=== PATIENT | female | born 1965 | race Caucasian/White ===

== ENCOUNTER → 2018-01-28 08:53 | Outpatient (CLI) | payer BC, SELFPAY ==
--- NOTE | 2018-01-28 08:56 | MM_ITS ---
MM Dig screening mamm BI w/CAD CAD Screening ORDERING PHYSICIAN : Allen Licea MD PATIENT AGE: 52 years GENDER: Female COMPARISON: Previous bilateral mammograms: December 2015, August 2013 INDICATION: Routine screening. 52-year-old. No hormones. No new complaints. Previous lung benign lumpectomy left breast. Previous biopsies both breasts. TECHNIQUE: Standard CC and MLO images were obtained. R2 CAD reviewed. FINDINGS: Dense breast bilaterally decreased sensitivity of mammography. . LEFT BREAST:The dense breast pattern seen towards the upper outer quadrant left breast is similar to 2016. No.. Minimal areas of nodularity seen previously are again noted. Small cluster of small calcifications deep left breast again noted and has shown no significant progression since 2016. Thus tend to support his benign nature. However previous magnification views raise concern. Because some this as well as slightly more evident density/nodularity left breast would suggest a follow-up left mammogram 6 months.. Ultrasound at that return visit would be beneficial as well. .RIGHT BREAST:. Metallic marker from Previous stereotactic biopsy at 12:00 right breast. Areas of dense breast similar to previous and dissipate from one view to another with no persistent area of concern. Follow-up in one year adequate However and breasts of this diffuse increased density low threshold for ultrasound would be warranted to compliment, augment mammography particularly if any palpable areas encountered IMPRESSION: 1. The tiny cluster of microcalcifications deep lateral left breast does not appear to change significantly since 2016. This supports is benign in character but would suggest a follow-up left mammogram in 6-8 months to further evaluate . 2. The breast is quite dense somewhat nodular character bilaterally which has not changed significantly and can be followed.. However Would suggest including bilateral breast ultrasound with the patient returns in 6-8 months to further evaluate this underlying architecture in this dense slightly nodular breast bilateral.No previous bilateral ultrasounds available BI-RADS Category: 3 Benign Finding Short Term Follow-up RECOMMENDED FOLLOW-UP: 6M -8 MONTH FOLLOW-UP Magnification spot views of clustered microcalcification deep left lateral breast 6 months Also suggest include bilateral breast ultrasound at that 6 month visit to survey these fairly dense slightly nodular breast... ( No previous bilateral breast ultrasound available) (A letter has been sent to the patient regarding results of the study.) breast bilaterally
== END ==
PROVIDERS: Family Provider Family Medicine; PCP Family Medicine; Visit Provider Nurse Practitioner Obstetrics & Gynecology
DX: Z12.31 Encounter for screening mammogram for malignant neoplasm of breast (principal)
CPT/HCPCS: 77067

== ENCOUNTER → 2018-02-22 09:48 | Outpatient (POV) | payer BC, SELFPAY | PROVIDERS: Family Provider Family Medicine; PCP Family Medicine; Visit Provider Specialist | DX: G56.03 Carpal tunnel syndrome, bilateral upper limbs (principal) | CPT/HCPCS: 95886; 95909 ==

== ENCOUNTER 2018-07-08 10:57 | Outpatient (RCR) | payer OTHER, SELFPAY | END 2018-07-08 10:58 | disposition home or self-care (01) | LOC: OT 10:57 | PROVIDERS: Family Provider Family Medicine; PCP Family Medicine; Visit Provider Orthopaedic Surgery | DX: G56.01 Carpal tunnel syndrome, right upper limb (principal) | CPT/HCPCS: 97760 ==

== ENCOUNTER → 2018-07-27 13:50 | Outpatient (POV) | payer OTHER, SELFPAY | PROVIDERS: Family Provider Family Medicine; PCP Family Medicine; Visit Provider Dermatology | DX: Z00.00 Encounter for general adult medical examination without abnormal findings (principal) ==

== ENCOUNTER → 2018-08-11 09:44 | Outpatient (CLI) | payer OTHER, SELFPAY ==
[2018-08-11 10:12] LABS: Basophils % 0.1 % (0.1-2.0); Eosinophils # 0.2 K/mm3 (0.0-0.4); Eosinophils % 2.3 % (0.1-12.0); Hematocrit 43.2 % (37.0-47.0); Hemoglobin 14.1 g/dL (12.2-16.2); Lymphocytes # 2.1 K/mm3 (0.7-4.5); Lymphocytes % 31.4 K/mm3 (10-50); Mean Corpuscular HGB Conc 32.7 g/dL (31.8-35.4); Mean Corpuscular Hemoglobin 28.4 pg (27.0-31.2); Mean Corpuscular Volume 86.6 fl (81-99); Mean Platelet Volume 6.8 fl (7.4-10.4); Monocytes # 0.4 K/mm3 (0.1-1.0); Monocytes % 5.4 % (1.7-9.3); Neutrophils % 60.7 % (37.0-80.0); Platelet Count 230 K/mm3 (142-424); Red Blood Count 4.98 M/mm3 (4.20-5.40); Red Cell Distribution Width 13.8 % (11.5-17.5); White Blood Count 6.6 K/mm3 (4.8-10.8)
[2018-08-11 11:14] LABS: Alanine Aminotransferase 24 U/L (12-78); Albumin Level 3.6 gm/dL (3.4-5.0); Albumin/Globulin Ratio 1.2 (1.1-1.8); Alkaline Phosphatase 137 U/L (46-116); Anion Gap 9.5 mEq/L (5-15); Aspartate Amino Transferase 17 U/L (15-37); Bilirubin,Total 0.5 mg/dL (0.2-1.0); Blood Urea Nitrogen 8 mg/dL (7-18); Calcium 9.2 mg/dL (8.5-10.1); Carbon Dioxide 29 mmol/L (21.0-32.0); Chloride 107 mmol/L (98-107); Chol/HDL Ratio 5.8 (1-3.5); Cholesterol 263 mg/dL (140-200); Creatinine,Serum 0.78 mg/dL (0.55-1.02); Estimated Glomerular Filt Rate 78 ml/min (>60); GFR (African American) 94 ML/MIN (>60); Globulin 3.1 gm/dl (1.3-3.2); Glucose 92 mg/dL (74-106); HDL Cholesterol 45 mg/dL (29-89); LDL Cholesterol 170 mg/dL (0-130); Potassium 4.5 mmoL/L (3.5-5.1); Sodium 141 mmol/L (136-145); Total Protein,Serum 6.7 gm/dL (6.4-8.2); Triglycerides 241 mg/dL (30-200); VLDL Cholesterol 48 mg/dL (0-40)
== END ==
PROVIDERS: PCP Family Medicine; Visit Provider Nurse Practitioner Obstetrics & Gynecology
DX: Z00.00 Encounter for general adult medical examination without abnormal findings (principal)
CPT/HCPCS: 36415; 80053; 80061; 85025

== ENCOUNTER → 2018-09-02 11:46 | Outpatient (CLI) | payer OTHER, SELFPAY ==
--- NOTE | 2018-09-02 12:00 | XR_ITS ---
XR chest 2V HISTORY: ITS.REASON: SMOKER ORDERING PHYSICIAN: Anupam Angel MD PATIENT AGE: 53 years COMPARISON: 09/12/2016 FINDINGS: The cardiomediastinal silhouette and pulmonary vascularity are within normal limits. The lungs are clear without infiltrates, suspicious nodules, or pleural effusions. No acute bony abnormalities. IMPRESSION: Negative chest, no acute finding
--- NOTE | 2018-09-02 12:00 | XR_ITS ---
XR wrist LT min 3V HISTORY numbness in fingers swelling and pain ITS.REASON: CTS ORDERING PHYSICIAN: Anupam Angel MD PATIENT AGE: 53 years Comparison: None FINDINGS: No fracture or dislocation. No lytic or blastic change. Accessory center of ossification versus old fracture noted at the tip of the ulnar styloid. No significant degenerative change. IMPRESSION: No acute finding
[2018-09-02 12:46] LABS: Basophils % 0.1 % (0.1-2.0); Eosinophils # 0.1 K/mm3 (0.0-0.4); Eosinophils % 1.6 % (0.1-12.0); Hematocrit 45.2 % (37.0-47.0); Hemoglobin 14.6 g/dL (12.2-16.2); Lymphocytes # 3.2 K/mm3 (0.7-4.5); Lymphocytes % 37.3 % (10-50); Mean Corpuscular HGB Conc 32.3 g/dL (31.8-35.4); Mean Corpuscular Hemoglobin 28.1 pg (27.0-31.2); Mean Corpuscular Volume 87.2 fl (81-99); Mean Platelet Volume 6.7 fl (7.4-10.4); Monocytes # 0.4 K/mm3 (0.1-1.0); Monocytes % 4.8 % (1.7-9.3); Neutrophils # 4.8 K/mm3 (1.8-7.8); Neutrophils % 56.1 % (37.0-80.0); Platelet Count 269 K/mm3 (142-424); Red Blood Count 5.18 M/mm3 (4.20-5.40); Red Cell Distribution Width 13.8 % (11.5-17.5); White Blood Count 8.5 K/mm3 (4.8-10.8)
[2018-09-02 13:56] LABS: Anion Gap 14.5 mEq/L (5-15); Blood Urea Nitrogen 10 mg/dL (7-18); Calcium 9.6 mg/dL (8.5-10.1); Carbon Dioxide 29 mmol/L (21.0-32.0); Chloride 102 mmol/L (98-107); Estimated Glomerular Filt Rate 66 ml/min (>60); GFR (African American) 80 ML/MIN (>60); Glucose 92 mg/dL (74-106); Potassium 4.5 mmoL/L (3.5-5.1); Sodium 141 mmol/L (136-145)
== END ==
PROVIDERS: PCP Family Medicine; Visit Provider Orthopaedic Surgery
DX: Z01.818 Encounter for other preprocedural examination (principal); G56.02 Carpal tunnel syndrome, left upper limb
CPT/HCPCS: 36415; 71046; 73110; 80048; 85025; 93005

== ENCOUNTER → 2018-10-29 13:26 | Outpatient (CLI) | payer OTHER, SELFPAY ==
--- NOTE | 2018-10-29 13:30 | US_ITS ---
US transvaginal HISTORY: Right lower quadrant pain ITS.REASON: RLQ PAIN ORDERING PHYSICIAN: Huy Shin MD PATIENT AGE: 53 years Comparison: FINDINGS: There has been a prior hysterectomy. Vaginal cuff has an unremarkable appearance. The right ovary is enlarged at 6 x 4 x 4 cm containing a septated cyst measuring 4.3 x 1.9 cm. This could be due to difference cyst. Blood flow is present within the septation or between the cysts. The left ovary is unremarkable. No cul-de-sac fluid evident. IMPRESSION: Septated right ovarian cyst measuring 4.6 x 1.9 cm versus 2 adjacent cysts in the right ovary each measuring approximately 2 cm. Consider 4-6 week follow-up to confirm resolution or stability. Prior hysterectomy
--- NOTE | 2018-10-29 13:30 | XR_ITS ---
XR wrist RT min 3V HISTORY: Right wrist pain ITS.REASON: right wrist pain/ cts ORDERING PHYSICIAN: Huy Shin MD PATIENT AGE: 53 years COMPARISON: Left wrist 09/02/2018 FINDINGS: No fracture or dislocation. No lytic or blastic change. There is normal mineralization.. The joint spaces are well-preserved. No significant degenerative/arthritic changes. No erosive changes evident.. There is a tiny bone density adjacent to the ulnar styloid possibly an accessory ossification center versus an old unfused chip fracture. It is smaller than the similar finding of the left wrist . The soft tissues are normal. IMPRESSION: Negative right wrist
== END ==
PROVIDERS: PCP Family Medicine; Visit Provider Family Medicine
DX: G56.01 Carpal tunnel syndrome, right upper limb (principal); R10.31 Right lower quadrant pain
CPT/HCPCS: 73110; 76830

== ENCOUNTER → 2018-11-08 12:55 | Outpatient (CLI) | payer OTHER, SELFPAY ==
[2018-11-08 14:55] LABS: Alanine Aminotransferase 23 U/L (12-78); Albumin Level 3.5 gm/dL (3.4-5.0); Albumin/Globulin Ratio 1.2 (1.1-1.8); Alkaline Phosphatase 138 U/L (46-116); Anion Gap 11.6 mEq/L (5-15); Aspartate Amino Transferase 11 U/L (15-37); Bilirubin,Total 0.6 mg/dL (0.2-1.0); Blood Urea Nitrogen 11 mg/dL (7-18); Calcium 9.1 mg/dL (8.5-10.1); Carbon Dioxide 29 mmol/L (21.0-32.0); Chloride 105 mmol/L (98-107); Chol/HDL Ratio 3.9 (1-3.5); Cholesterol 219 mg/dL (140-200); Creatinine,Serum 0.92 mg/dL (0.55-1.02); Estimated Glomerular Filt Rate 64 ml/min (>60); GFR (African American) 78 ML/MIN (>60); Glucose 94 mg/dL (74-106); HDL Cholesterol 56 mg/dL (29-89); LDL Cholesterol 130 mg/dL (0-130); Potassium 4.6 mmoL/L (3.5-5.1); Sodium 141 mmol/L (136-145); Thyroid Stimulating Hormone 2.18 uIU/ml (0.358-3.740); Total Protein,Serum 6.5 gm/dL (6.4-8.2); Triglycerides 163 mg/dL (30-200); VLDL Cholesterol 33 mg/dL (0-40)
== END ==
PROVIDERS: PCP Family Medicine; Visit Provider Family Medicine
DX: E78.5 Hyperlipidemia, unspecified (principal); E03.9 Hypothyroidism, unspecified
CPT/HCPCS: 36415; 80053; 80061; 84443

== ENCOUNTER 2019-03-27 11:59 | Emergency (ER) | payer OTHER, SELFPAY ==
[2019-03-27 12:10] VITALS: BP 140/92; PULSE 94; RESP 18; TEMP 36.6; O2SAT 97; BMI 32.9
--- NOTE | 2019-03-27 12:14 | XR_ITS ---
XR chest 2V HISTORY: Shortness of air ITS.REASON: SOA ORDERING PHYSICIAN: Glory Cueto APRN PATIENT AGE: 53 years COMPARISON: 09/02/2018 FINDINGS: The cardiomediastinal silhouette and pulmonary vascularity are within normal limits. There is a 1.7 cm nodular opacity in the right perihilar region. There is a small left pleural effusion with mild atelectatic changes in the lung bases. No acute bony anomalies IMPRESSION: 1. 1.7 cm nodule in the right perihilar region. While this can be due to an area of rounded pneumonia, developing pulmonary nodule is also a consideration. Chest CT with contrast suggested for further evaluation. 2. Small left pleural effusion with mild bibasilar atelectasis
--- NOTE | 2019-03-27 12:14 | HMH.EDUTC ---
[facility] – [place] Disposition Clinical Impression: Bronchitis Disposition: Home, Self-Care Condition on Discharge: Good Instructions: DI for Acute Bronchitis, Acute Bronchitis, Acute Bronchitis (Alternative Therapy) Additional Instructions: ? Start antibiotic today. Be sure to complete entire prescription even if feeling better ? Monitor temp. Tylenol every 4 hours as needed and / or ibuprofen every 6 hours as needed ( As long as your primary care physician has told you that it ok to take both. For fever/aches/pains ER if no less than 101 despite Tylenol or Motrin ? Humidifier/vaporizer or hot steamy shower ? Inhaler every 4-6 hours as needed like we discussed. If unsure how to use it, ask pharmacist to demonstrate how. Should help open airways and improve cough, wheezing, and shortness of breath ? Mucinex during the day for your cough and cough suppressant only at night. Be sure to drink lots of water. Insurance may not cover a prescriptions for mucinex. Might be cheaper to get 400mg tablets and take 2 tablet in the morning, mid-day and evening with lots of water. Tessalon Perles will not cause drowsiness but use at bedtime to help stop cough so that you may get some rest. *Start steroid today. Helps with inflammation therefore, cough and wheezing. Follow directions on the package. Reviewed side effects. Patient reports taking them before. Follow up IMMEDIATELY for new or worsening of symptoms OR no noticeable improvement over the next 48-72 hours. 911 immediately for any life threatening symptoms such as chest pain or difficulty breathing Prescriptions: Albuterol Sulfate [Albuterol HFA Inhaler] 2 puffs IH Q6HP PRN #1 inh PRN Reason: Shortness Of Breath Or Wheezing predniSONE [Prednisone 20mg Tab] 20 mg PO BID #10 tab Benzonatate [Tessalon Perle 100mg Cap] 100 mg PO TID PRN #15 cap PRN Reason: Cough Azithromycin [Z-Jose 250mg Tab] 250 mg PO UD DOSE PK #6 tab Referrals: Johnnie Quinones MD [Primary Care Provider] - As needed Time of Disposition: 12:47 Medical Decision Making - Sammy Inquiry Pt receiving controlled substance: No Sammy was queried for this patient: No Vital Signs: 03/27/19 12:10 Temperature 97.9 F Temperature Source Oral Pulse Rate [Right Brachial] 94 H Respiratory Rate 18 Blood Pressure [Right Arm] 140/92 H Blood Pressure Mean [Right Arm] 108 Blood Pressure Source [Right Arm] Automatic Cuff Blood Pressure Position [Right Arm] Sitting 02 Sat by Pulse Oximetry 97 Oxygen Delivery Method Room Air Orders (Tests/Meds): ORDERS Category Date Time Status CXR 2 view (NOT portable) [XR chest 2V] Stat Exams 03/27/19 12:14 Taken - Radiology Data #1 Image(s): Chest Image Reviewed: Yes I reviewed the patient's radiology image No acute finding, will place on azithromycin steroids and have patient follow up with family doctor if any worsening of symptoms or no improvement - Reevaluation(s) Time: 12:28 Reevaluation #1: Requested ER physician Dr Amanda look at xray awaiting call back Time: 12:51 Reevaluation #3: Patient state that she is not having soa at this time. sitting on exam table talking with [facility] [place] HPI - General Stated complaint: SOA Time Seen by Provider: 03/27/19 12:14 Mode of Arrival: Family Vehicle Source of Information: Patient Limitations: No Limitations Description of Symptoms (Recalled from Triage Doc. by RN): C/O TROUBLE BREATHING X 3 DAYS WITH NO COUGH HEENT Symptoms (Recalled from RN notes): No Resp Symptoms (Recalled from RN notes): Yes Skin Symptoms (Recalled from RN notes): No MS Symptoms (Recalled from RN notes): No Functional Status (Recalled from RN notes): N/A - History of Present Illness Provider Complaint: Patient states that she has had a dry cough, feeling of pressure in both ears State that for the last two night she has been waking up in the middle of the night feeling a little short of breath and then it goes away State that symptoms starte
--- NOTE | 2019-03-27 12:17 | ED_ITS ---
[facility] [place] Clinical Impression: Bronchitis Disposition: Home, Self-Care Condition on Discharge: Good Instructions: DI for Acute Bronchitis, Acute Bronchitis, Acute Bronchitis (Alternative Therapy) Additional Instructions: ? Start antibiotic today. Be sure to complete entire prescription even if feeling better ? Monitor temp. Tylenol every 4 hours as needed and / or ibuprofen every 6 hours as needed ( As long as your primary care physician has told you that it ok to take both. For fever/aches/pains ER if no less than 101 despite Tylenol or Motrin ? Humidifier/vaporizer or hot steamy shower ? Inhaler every 4-6 hours as needed like we discussed. If unsure how to use it, ask pharmacist to demonstrate how. Should help open airways and improve cough, wheezing, and shortness of breath ? Mucinex during the day for your cough and cough suppressant only at night. Be sure to drink lots of water. Insurance may not cover a prescriptions for mucinex. Might be cheaper to get 400mg tablets and take 2 tablet in the morning, mid-day and evening with lots of water. Tessalon Perles will not cause drowsiness but use at bedtime to help stop cough so that you may get some rest. *Start steroid today. Helps with inflammation therefore, cough and wheezing. Follow directions on the package. Reviewed side effects. Patient reports taking them before. Follow up IMMEDIATELY for new or worsening of symptoms OR no noticeable improvement over the next 48-72 hours. 911 immediately for any life threatening symptoms such as chest pain or difficulty breathing Prescriptions: Albuterol Sulfate [Albuterol HFA Inhaler] 2 puffs IH Q6HP PRN #1 inh PRN Reason: Shortness Of Breath Or Wheezing predniSONE [Prednisone 20mg Tab] 20 mg PO BID #10 tab Benzonatate [Tessalon Perle 100mg Cap] 100 mg PO TID PRN #15 cap PRN Reason: Cough Azithromycin [Z-Jose 250mg Tab] 250 mg PO UD DOSE PK #6 tab Referrals: Johnnie Quinones MD [Primary Care Provider] - As needed Time of Disposition: 12:47 Medical Decision Making - Sammy Inquiry Pt receiving controlled substance: No Sammy was queried for this patient: No Vital Signs: 03/27/19 12:10 Temperature 97.9 F Temperature Source Oral Pulse Rate [Right Brachial] 94 H Respiratory Rate 18 Blood Pressure [Right Arm] 140/92 H Blood Pressure Mean [Right Arm] 108 Blood Pressure Source [Right Arm] Automatic Cuff Blood Pressure Position [Right Arm] Sitting 02 Sat by Pulse Oximetry 97 Oxygen Delivery Method Room Air Orders (Tests/Meds): ORDERS Category Date Time Status CXR 2 view (NOT portable) [XR chest 2V] Stat Exams 03/27/19 12:14 Taken - Radiology Data #1 Image(s): Chest Image Reviewed: Yes I reviewed the patient's radiology image No acute finding, will place on azithromycin steroids and have patient follow up with family doctor if any worsening of symptoms or no improvement - Reevaluation(s) Time: 12:28 Reevaluation #1: Requested ER physician Dr Amanda look at xray awaiting call back Time: 12:51 Reevaluation #3: Patient state that she is not having soa at this time. sitting on exam table talking with [facility] [place] - General Stated complaint: SOA Time Seen by Provider: 03/27/19 12:14 Mode of Arrival: Family Vehicle Source of Information: Patient Limitations: No Limitations Description of Symptoms (Rec
[2019-03-27 12:52] VITALS: BP 140/92; PULSE 94; RESP 18; TEMP 36.6; O2SAT 97
== END 2019-03-27 12:54 | disposition home or self-care (01) ==
PROVIDERS: Emergency Provider Nurse Practitioner; PCP Family Medicine
DX: J20.9 Acute bronchitis, unspecified (principal); F17.210 Nicotine dependence, cigarettes, uncomplicated; F32.9 Major depressive disorder, single episode, unspecified; Z88.5 Allergy status to narcotic agent
CPT/HCPCS: 71046; 99201

== ENCOUNTER → 2019-04-11 08:31 | Outpatient (CLI) | payer OTHER, SELFPAY ==
--- NOTE | 2019-04-11 08:38 | CT_ITS ---
CT chest w con HISTORY: ITS.REASON: PULMONARY NODULES, abnormal chest x-ray, ORDERING PHYSICIAN: Johnnie Quinones MD PATIENT AGE: 53 years COMPARISON: 03/27/2019 TECHNIQUE: Axial images obtained following the administration of 75 mL of Optiray 350 . Sagittal, and coronal reformatted images are also generated and reviewed. All CT scans at the facility use one or more dose reduction, viz: automated exposure control, ma/kV adjustment per patient size (including targeted exams where dose is matched to indication, i.e. head), or iterative reconstruction technique. FINDINGS: No mediastinal or hilar mass or adenopathy. No evidence of aortic aneurysm, dissection, or central pulmonary embolus. There is a well-circumscribed 10 by 6 mm round nodule in the right upper lobe posteriorly and medially along the major fissure. No effusions or infiltrates. There are minimal atelectatic or fibrotic changes in the left lung base. The remaining lungs are clear. No acute bony anomalies. Upper abdominal images are unremarkable. IMPRESSION: 1. 10 x 6 mm noncalcified pulmonary nodule in the right upper lobe medially along the major fissure. This nodule is located along the fissure and has benign features. Suggest 6 month follow-up due to the size. 2. Previously noted radiographic abnormality in the right perihilar region is not apparent and may been due to an area of infiltrate which has since resolved. Left basilar infiltrate and effusion has also resolved.
== END ==
PROVIDERS: PCP Family Medicine; Visit Provider Family Medicine
DX: R91.1 Solitary pulmonary nodule (principal)
CPT/HCPCS: 71260; Q9967

== ENCOUNTER → 2019-07-06 10:32 | Outpatient (CLI) | payer OTHER, SELFPAY ==
--- NOTE | 2019-07-06 10:59 | ECG_ITS ---
APPROVED REPORT Exam: Resting ECG HR:87 bpm ECG Measurements Heart Rate 87 AXES AR 176 P 48 QRSd 90 QRS 0 QT 404 T 24 QTc 486 <Conclusion> Normal sinus rhythm Possible Left atrial enlargement Prolonged QT Incomplete RBBB Abnormal ECG Electronically signed by : Tyson Burton, 07/06/2019 13:08:32
--- NOTE | 2019-07-06 11:01 | XR_ITS ---
PROCEDURE: XR CHEST 2V CLINICAL HISTORY: SOB, CP Shortness of breath, chest pain COMPARISON: CXR CHEST(2 VIEWS-NOT PORTABLE) from 09/12/2016 CXR2V XR chest 2V from 09/02/2018 Chest from 03/27/2019 FINDINGS: The cardiomediastinal silhouette and pulmonary vascularity are within normal limits. Fibrotic changes are present in the lung bases. The previously noted increased density in the right perihilar region has shown some improvement. There does remain some consolidation in the right perihilar region as before. Trace bilateral effusions are noted. No acute bony abnormalities. IMPRESSION: Persistent but improving right lower lobe pneumonia. Previously noted rounded area of density in the right perihilar region is less apparent. Suggest following till clear. Trace bilateral effusions unchanged Dictated by: Zi Quintana MD 07/06/2019 12:34 Electronically signed by Zi Quintana MD in [place] 07/06/2019 12:34
[2019-07-06 11:30] LABS: CKMB Relative Index 1.5 U/L (0-4.0); Creatine Kinase 52 U/L (26-192); Creatine Kinase MB 0.8 ng/ml (0.0-3.6); Troponin I < 0.02 ng/ml (0.00-0.06)
[2019-07-06 13:10] LABS: Alanine Aminotransferase 19 U/L (12-78); Albumin Level 3.5 gm/dL (3.4-5.0); Albumin/Globulin Ratio 1.4 (1.1-1.8); Alkaline Phosphatase 116 U/L (46-116); Anion Gap 13.1 mEq/L (5-15); Aspartate Amino Transferase 15 U/L (15-37); Bilirubin,Total 0.8 mg/dL (0.2-1.0); Blood Urea Nitrogen 9 mg/dL (7-18); Calcium 8.7 mg/dL (8.5-10.1); Carbon Dioxide 27 mmol/L (21.0-32.0); Chloride 108 mmol/L (98-107); Creatinine,Serum 0.89 mg/dL (0.55-1.02); Estimated Glomerular Filt Rate 67 ml/min (>60); GFR (African American) 81 ML/MIN (>60); Globulin 2.5 gm/dl (1.3-3.2); Glucose 108 mg/dL (74-106); Potassium 4.1 mmoL/L (3.5-5.1); Sodium 144 mmol/L (136-145); Thyroid Stimulating Hormone 1.03 uIU/ml (0.358-3.740)
[2019-07-06 14:28] LABS: D-Dimer 511 ng/mL (0-400)
--- NOTE | 2019-07-06 15:45 | CT_ITS ---
PROCEDURE: CT ANGIO CHEST CLINCIAL INDICATION: CHEST PAIN,SOB,ELEVATD D-DIMER Shortness of breath, difficulty breathing, elevated D-dimer COMPARISON: XR CHEST 2V from 07/06/2019 TECHNIQUE: IV Contrast: 70ML OPTIRAY 350 Axial images obtained with sagittal and coronal reformats. All CT scans at the facility use one or more dose reduction, viz: automated exposure control, ma/kV adjustment per patient size (including targeted exams where dose is matched to indication, i.e. head), or iterative reconstruction technique. FINDINGS: No evidence of pulmonary embolus. No aortic aneurysm or dissection evident. No evidence of pericardial effusion. There is increased soft tissue density in the anterior mediastinum. There is an enlarged left AP window lymph node at 2.7 x 1.9 cm. Mild adenopathy is present in the subcarinal region. This measures 3 x 1.4 cm. No pericardial effusion. Normal heart size. No axillary adenopathy. There are only a few small bilateral axillary lymph nodes present nonenlarged. There is some calcification in the right breast laterally nonspecific There are scattered atelectatic changes. There is a 7 mm noncalcified nodule right upper lobe medially which is along the major fissure. This is 10 mm in length. There are some patchy peripheral areas of ground-glass density noted throughout both lungs as well as prominence of the interstitium in the lower lobes. This could be seen with CHF. Atelectatic changes are present in the lung bases with small bilateral effusions. No acute bony anomalies. There is mild splenomegaly at 13 cm. IMPRESSION: 1. No evidence of pulmonary embolus or aortic aneurysm. 2. Mild mediastinal adenopathy with enlarged nodes in the AP window and subcarinal area. There is some increased density in the anterior mediastinum which could be related to residual thymic tissue or small nodes. Suggest 3 month follow-up to confirm short term stability 3. Small bilateral effusions with bibasilar atelectasis. There is septal thickening in the lower lobes with patchy ground-glass density in both lungs which may be seen with CHF. Dictated by: Zi Quintana MD 07/06/2019 16:40 Electronically signed by Zi Quintana MD in [place] 07/06/2019 16:40
== END ==
PROVIDERS: PCP Family Medicine; Visit Provider Physician Assistant
DX: R06.02 Shortness of breath (principal); R07.9 Chest pain, unspecified; R07.89 Other chest pain; E03.9 Hypothyroidism, unspecified
CPT/HCPCS: 36415; 71046; 71275; 80053; 82550; 82553; 83880; 84443; 84484; 85378; 93005; Q9967

== ENCOUNTER → 2019-07-13 09:55 | Outpatient (CLI) | payer OTHER, SELFPAY ==
--- NOTE | 2019-07-13 | CA_ITS ---
APPROVED REPORT EXAM: Comprehensive 2D, Doppler, and color-flow Echocardiogram Professor Of Astronomy: Rupali Guillaume RVT Ht: 5 ft 2 in Wt: 181lbs BSA: 1.83 BP: 133/85 mmHg Indications: Congestive Heart Failure, Obesity, Hyperlipidemia,Smoker 2D Dimensions LVOT 1.90 cm (M/F) 1.5-2.5 M-Mode Dimensions RVDd 1.70 cm (0.9-2.6) LA Diam 4.00 cm (1.9-4.0) LVDd 5.20 cm (3.5-5.7) Ao Diam 2.40 cm (2.0-3.7) LVDs 3.30 cm (3.5-5.7) AV Cusp 1.70 cm (1.5-2.6) IVSd 0.70 cm (0.6-1.1) PWd 1.00 cm (0.6-1.1) EF (Teich) 66.10% FS 36.50% EDV (Teich) 130.00 mL ESV (Teich) 44.10 mL LV Diastology E/A Ratio 1.1 MED E' 6.63 (< 7 cm/sec) E'/MED E' Ratio 12.70 (>14) LAT E' 15.20 (<10 cm/sec) E/LAT E' Ratio 5.50 (>14) Aortic Valve AoV Peak Hawk. 81.90 (50-130 cm/s) AO Peak GR. 3.00 mmHg Mitral Valve MV E Max Hawk. 83.90 (40-130 cm/s) MV A Velocity 78.00 (40-130 cm/s) E/A Ratio 1.10 MV Mean Gr. 8.00 (<2mmHg) MV PHT 82.00 ms MVA PHT 2.7 cm2 Pulmonary Valve PA Accel Time 141.00 (>120 msec) Tricuspid Valve TR P. Velocity 267.00 cm/s Left Ventricle Left atrium is moderately enlarged, left ventricle is normal size, mild concentric left ventricular hypertrophy, visually estimated ejection fraction 55% with no regional wall motion abnormality. Diastolic parameters are inconclusive. Right Ventricle Right atrium and right ventricular normal size and contractility. Aortic Valve Aortic valve is minimally thickened and fibrosed, leaflet continue to display good mobility, there is no aortic stenosis. Mitral Valve Mitral valve leaflets are minimally thickened, there is restriction in the posterior mitral leaflet mobility, the posterior mitral valve leaflet is redundant. The mitral inflow velocity is increased to 2 m/s, resulting in a mean gradient across valve of 7 mmHg, the pressure half-time is not accurately calculated, there is mitral regurgitation present which is likely in severe range. If clinically indicated transesophageal echocardiogram is recommended for further evaluation. Tricuspid Valve Mild tricuspid regurgitation, tricuspid regurgitation jet velocity is inadequate for calculation of the right ventricular systolic pressure. Pulmonic Valve Pulmonic valve is poorly visualized. Great Vessels Aortic root is normal size. Pericardium No significant pericardial effusion noted. Conclusion 1. Technically difficult study because of the patient fact in poor acoustic windows 2. Moderately enlarged left atrium, normal left ventricular size, mild concentric left ventricular hypertrophy, visually estimated ejection fraction 55% with no regional wall motion abnormality, diastolic parameters are inconclusive. 3. Abnormal mitral valve with mean gradient across valve of 7 mmHg, pressure half-time is not accurately calculated, there is mitral regurgitation present which is likely in severe range, if clinically indicated a transesophageal echocardiogram is recommended for further evaluation. 4. Mild tricuspid regurgitation. 5. No significant pericardial effusion noted. Electronically signed by : Vern Valera, 07/15/2019 16:12:47
--- NOTE | 2019-07-13 | CA_ITS ---
APPROVED REPORT Outreach Librarian: CT Laterality: Bilateral Study Quality: Good Indications: Paresthesia Risk Factors Hyperlipidemia Doppler Spectral Velocity Analysis ECA (R) 76.70/ cm/s ECA (L) 75.40/ cm/s dICA (R) 97.40/38.30 cm/s dICA (L) 98.10/46.50 cm/s Alex (R) 105.00/45.90 cm/s Alex (L) 92.40/43.40 cm/s pICA (R) 77.90/34.60 cm/s pICA (L) 69.10/30.80 cm/s dCCA (R) 77.80/30.60 cm/s dCCA (L) 82.30/33.90 cm/s pCCA (R) 91.10/32.20 cm/s pCCA (L) 84.20/27.70 cm/s Vert (R) 50.30/ cm/s Vert (L) 54.70/ cm/s ICA/CCA 1.35 ICA/CCA 1.19 Conclusion Duplex evaluation demonstrates no evidence of hemodynamically significant stenosis of the bilateral Internal Carotid Arteries. Duplex evaluation demonstrates antegrade flow of the bilateral Vertebral Arteries. Electronically signed by : iZ Quintana MD 07/14/2019 16:35:46
== END ==
PROVIDERS: PCP Physician Assistant; Visit Provider Physician Assistant
DX: I50.9 Heart failure, unspecified (principal); R20.2 Paresthesia of skin
CPT/HCPCS: 93306; 93880

== ENCOUNTER → 2019-07-14 12:30 | Outpatient (CLI) | payer OTHER, SELFPAY ==
--- NOTE | 2019-07-14 12:44 | XR_ITS ---
PROCEDURE: XR WRIST RT MIN 3V CLINICAL INDICATION: CARPEL TUNNEL SYNDROME Carpal tunnel syndrome, burning, numbness COMPARISON: WRISTCMLT XR wrist LT min 3V from 09/02/2018 WRISTCMRT XR wrist RT min 3V from 10/29/2018 FINDINGS: No fracture or dislocation. No lytic or blastic change. There is a small calcific density at the tip of the ulnar styloid similar to the previous exam. There are mild osteoarthritic changes at the 1st metacarpal-carpal joint. A faint lucency is present at the articular surface of the distal aspect of the scaphoid and may represent a small subarticular cyst. IMPRESSION: Mild degenerative changes otherwise negative Dictated by: Zi Quintana MD 07/14/2019 12:55 Electronically signed by Zi Quintana MD in [place] 07/14/2019 12:55
[2019-07-14 13:18] LABS: Basophils % 0.2 % (0.1-2.0); Eosinophils # 0.2 K/mm3 (0.0-0.4); Eosinophils % 1.9 % (0.1-12.0); Hematocrit 42.4 % (37.0-47.0); Hemoglobin 13.4 g/dL (12.2-16.2); Lymphocytes # 3.2 K/mm3 (0.7-4.5); Lymphocytes % 35.7 % (10-50); Mean Corpuscular HGB Conc 31.6 g/dL (31.8-35.4); Mean Corpuscular Hemoglobin 27.2 pg (27.0-31.2); Mean Corpuscular Volume 86.3 fl (81-99); Mean Platelet Volume 6.5 fl (7.4-10.4); Monocytes # 0.4 K/mm3 (0.1-1.0); Monocytes % 4.3 % (1.7-9.3); Neutrophils # 5.1 K/mm3 (1.8-7.8); Platelet Count 283 K/mm3 (142-424); Red Blood Count 4.92 M/mm3 (4.20-5.40); Red Cell Distribution Width 13.4 % (11.5-17.5); White Blood Count 8.9 K/mm3 (4.8-10.8)
== END ==
PROVIDERS: Visit Provider Orthopaedic Surgery
DX: Z01.818 Encounter for other preprocedural examination (principal); G56.01 Carpal tunnel syndrome, right upper limb
CPT/HCPCS: 36415; 73110; 85025

== ENCOUNTER → 2019-10-11 09:41 | Outpatient (CLI) | payer OTHER, SELFPAY ==
[2019-10-11 10:35] VITALS: PULSE 78; PULSE 82
== END ==
PROVIDERS: PCP Family Medicine; Visit Provider Physician Assistant
DX: R06.02 Shortness of breath (principal)
CPT/HCPCS: 94060; 94640; 94726; 94729

== ENCOUNTER → 2019-10-17 14:33 | Outpatient (CLI) | payer OTHER, SELFPAY ==
--- NOTE | 2019-10-17 14:36 | CT_ITS ---
PROCEDURE: CT CHEST W CON CLINICAL HISTORY: PULMONARY NODULES, COMPARISON: CHESTW CT chest w con from 04/11/2019 CT ANGIO CHEST from 07/06/2019 TECHNIQUE: Axial images obtained with sagittal and coronal reformats. All CT scans at the facility use one or more dose reduction, viz: automated exposure control, ma/kV adjustment per patient size (including targeted exams where dose is matched to indication, i.e. head), or iterative reconstruction technique. FINDINGS: Airway structures are patent without pleural effusion or pneumothorax. There is a thin linear strand of increased density in the lingula and posterior left lower lobe and base of the right middle lobe. The 10.0 millimeter noncalcified subpleural nodule adjacent to the superior right major fissure in the posterior segment right upper lobe is stable. There are no new nodules. Mediastinal structures and thoracic aorta are unremarkable. There is no abnormal adenopathy. Some hazy strands of increased density in the anterior superior mediastinum remains stable. Visualized upper abdominal structures are unremarkable with finding of prior cholecystectomy. IMPRESSION: No significant change. Specifically right upper lobe 10 millimeter noncalcified nodule is stable. Suggest follow-up CT chest at 6-12 months. No acute process or significant change. Dictated by: Antonino Bullock 10/17/2019 16:43 Electronically signed by Antonino Bullock in [facility] 10/17/2019 16:43
== END ==
PROVIDERS: PCP Family Medicine; Visit Provider Physician Assistant
DX: R91.8 Other nonspecific abnormal finding of lung field (principal); R59.0 Localized enlarged lymph nodes
CPT/HCPCS: 71260; Q9967

== ENCOUNTER → 2019-11-22 12:20 | Outpatient (CLI) | payer OTHER, SELFPAY ==
--- NOTE | 2019-11-22 12:25 | XR_ITS ---
PROCEDURE: XR ANKLE LT MIN 3V CLINICAL INDICATION: LT ANKLE PAIN COMPARISON: No exams were available for comparison FINDINGS: There is an old fracture versus ununited ossification center at the medial malleolar region with mild hypertrophic changes at the tip of the medial malleolus and lateral malleolus. There is mild spurring of the posterior distal tibia. The ankle mortise is well preserved. No acute fracture or dislocation. Unremarkable appearing talar dome IMPRESSION: Degenerative/chronic changes, no acute finding Dictated by: Zi Quintana MD 11/22/2019 14:43 Electronically signed by Zi Quintana MD in [facility] 11/22/2019 14:43
== END ==
PROVIDERS: PCP Family Medicine; Visit Provider Family Medicine
DX: M25.572 Pain in left ankle and joints of left foot (principal)
CPT/HCPCS: 73610

== ENCOUNTER → 2019-12-09 13:54 | Outpatient (CLI) | payer OTHER, SELFPAY ==
--- NOTE | 2019-12-09 13:57 | CT_ITS ---
PROCEDURE: CT CHEST WO CON CLINICAL INDICATION: LUNG NODULE Follow-up pulmonary nodule COMPARISON: CHESTW CT chest w con from 04/11/2019 CT CHEST W CON from 10/17/2019 TECHNIQUE: Axial images obtained with sagittal and coronal reformats. All CT scans at the facility use one or more dose reduction, viz: automated exposure control, ma/kV adjustment per patient size (including targeted exams where dose is matched to indication, i.e. head), or iterative reconstruction technique. FINDINGS: HEART AND MEDIASTINAL STRUCTURES: Hazy density in the anterior mediastinum not significantly changed. No mediastinal or hilar mass or adenopathy. LUNGS AND PLEURAL SPACES: 6 mm right upper lobe nodule adjacent to the major fissure is unchanged. No new nodules evident. The no effusions or infiltrates. BONY STRUCTURES: No acute bony abnormalities apparent. UPPER ABDOMEN: Unremarkable. ADDITIONAL FINDINGS: No other significant abnormalities. IMPRESSION: Overall stable CT appearance of the chest. No change in the 6 mm right upper lobe nodule. Recommend 12 month follow-up Dictated by: Zi Quintana MD 12/11/2019 07:14 Electronically signed by Zi Quintana MD in [facility] 12/11/2019 07:16
== END ==
PROVIDERS: PCP Family Medicine; Visit Provider Internal Medicine Sleep Medicine
DX: R91.1 Solitary pulmonary nodule (principal); R09.82 Postnasal drip
CPT/HCPCS: 71250

== ENCOUNTER → 2020-02-28 08:36 | Outpatient (CLI) | payer OTHER, SELFPAY ==
--- NOTE | 2020-02-28 08:36 | MR_ITS ---
PROCEDURE: MR FOOT RT WO/W CON CLINICAL INDICATION: rule out plantar fascia tear. Right foot pain, history of plantar fasciitis COMPARISON: No exams were available for comparison TECHNIQUE: Routine multiplanar multi echo sequences are performed without and with gadolinium enhancement. FINDINGS: No fracture or dislocation apparent. No obvious ligamentous or tendinous abnormalities. There is a small ankle joint effusion with fluid along the lateral aspect of the talonavicular and tibiotalar region as well as the posterior subtalar joint and posterior talocalcaneal area. There is thickening of the plantar fascia at its insertion on the calcaneus with decreased T1 and increased T2 signal. There is local increased T2 signal of the soft tissues at this region as well the along the medial aspect of the calcaneus consistent with underlying inflammatory changes/edema. IMPRESSION: 1. Findings are compatible with plantar fasciitis with increased T2 signal and thickening of the plantar fascia at the calcaneal insertion with surrounding inflammation of the soft tissues medially. One cannot exclude the possibility of a partial tear of the plantar fascia. 2. Ankle joint effusion Dictated by: Zi Quintana MD 03/01/2020 11:47 Electronically signed by Zi Quintana MD in [facility] 03/01/2020 11:47
== END ==
PROVIDERS: PCP Family Medicine; Visit Provider Nurse Practitioner
DX: M72.2 Plantar fascial fibromatosis (principal)
CPT/HCPCS: 73720; A9576

== ENCOUNTER → 2020-03-03 08:38 | Outpatient (CLI) | payer OTHER, SELFPAY ==
[2020-03-03 10:06] LABS: Chloride 104 mmol/L (98-107); Potassium 4.3 mmoL/L (3.5-5.1); Sodium 138 mmol/L (136-145)
[2020-03-03 10:08] LABS: Blood Urea Nitrogen 14 mg/dl (7-17); Estimated Glomerular Filt Rate 58 ml/min (>60); GFR (African American) 70 ML/MIN (>60)
[2020-03-03 10:09] LABS: Alanine Aminotransferase 9 U/L (12-78); Albumin Level 4.1 g/dl (3.5-5.0); Albumin/Globulin Ratio 1.7 (1.1-1.8); Alkaline Phosphatase 109 U/L (38-126); Anion Gap 7.3 mEq/L (5-15); Aspartate Amino Transferase 14 U/L (14-36); Calcium 9.9 mg/dl (8.4-10.2); Carbon Dioxide 31 mmol/L (22.0-30.0); Cholesterol 150 mg/dl (140-200); Globulin 2.4 g/dL (1.3-3.2); Glucose 98 mg/dl (74-100); Total Protein,Serum 6.5 g/dl (6.3-8.2); Triglycerides 141 mg/dl (30-150); VLDL Cholesterol 28 mg/dL (0-40)
[2020-03-03 10:10] LABS: Chol/HDL Ratio 2.2 (1-3.5); HDL Cholesterol 69 mg/dl (40-60); Hemoglobin A1C 5.6 % (4.0-6.0)
[2020-03-03 10:18] LABS: NT Pro Brain Natriuretic Pep. 87.9 pg/mL (0-125)
[2020-03-03 10:21] LABS: Direct LDL Cholesterol 71.45 mg/dL (100-129)
[2020-03-03 10:24] LABS: Free T4 (Free Thyroxine) 1.02 ng/dl (0.78-2.19)
[2020-03-03 10:39] LABS: Thyroid Stimulating Hormone 3.37 uIU/mL (0.465-4.68)
== END ==
PROVIDERS: Visit Provider Physician Assistant
DX: R06.02 Shortness of breath (principal); R73.01 Impaired fasting glucose; E03.9 Hypothyroidism, unspecified; E78.5 Hyperlipidemia, unspecified
CPT/HCPCS: 36415; 80053; 80061; 83036; 83880; 84439; 84443

== ENCOUNTER → 2020-07-03 13:48 | Outpatient (CLI) | payer OTHER, SELFPAY ==
[2020-07-03 16:00] LABS: INR 5.06 (0.9-1.1); Prothrombin Time 46.9 seconds (9.4-11.8)
== END ==
PROVIDERS: Visit Provider Internal Medicine Cardiovascular Disease
DX: Z51.81 Encounter for therapeutic drug level monitoring (principal); Z79.01 Long term (current) use of anticoagulants; Z95.2 Presence of prosthetic heart valve
CPT/HCPCS: 36415; 85610

== ENCOUNTER → 2020-07-06 09:30 | Outpatient (CLI) | payer OTHER, SELFPAY ==
[2020-07-06 10:03] LABS: INR 1.54 (0.9-1.1); Prothrombin Time 15.4 seconds (9.4-11.8)
== END ==
PROVIDERS: Visit Provider Internal Medicine Cardiovascular Disease
DX: Z51.81 Encounter for therapeutic drug level monitoring (principal); Z79.01 Long term (current) use of anticoagulants
CPT/HCPCS: 36415; 85610

== ENCOUNTER → 2020-07-09 09:06 | Outpatient (CLI) | payer OTHER, SELFPAY ==
[2020-07-09 16:54] LABS: INR 1.93 (0.9-1.1); Prothrombin Time 19.2 seconds (9.4-11.8)
== END ==
PROVIDERS: Visit Provider Internal Medicine Cardiovascular Disease
DX: Z95.2 Presence of prosthetic heart valve (principal)
CPT/HCPCS: 36415; 85610

== ENCOUNTER → 2020-07-12 08:52 | Outpatient (CLI) | payer OTHER, SELFPAY ==
[2020-07-12 09:24] LABS: INR 1.69 (0.9-1.1); Prothrombin Time 16.8 seconds (9.4-11.8)
== END ==
PROVIDERS: Visit Provider Internal Medicine Cardiovascular Disease
DX: Z51.81 Encounter for therapeutic drug level monitoring (principal); Z79.01 Long term (current) use of anticoagulants; Z95.2 Presence of prosthetic heart valve
CPT/HCPCS: 36415; 85610

== ENCOUNTER → 2020-07-17 09:49 | Outpatient (CLI) | payer OTHER, SELFPAY ==
[2020-07-17 10:29] LABS: INR 1.86 (0.9-1.1); Prothrombin Time 18.4 seconds (9.4-11.8)
== END ==
PROVIDERS: Visit Provider Internal Medicine Cardiovascular Disease
DX: Z51.81 Encounter for therapeutic drug level monitoring (principal); Z79.01 Long term (current) use of anticoagulants; Z95.2 Presence of prosthetic heart valve
CPT/HCPCS: 36415; 85610

== ENCOUNTER 2020-08-15 09:59 | Outpatient (RCR) | payer OTHER, SELFPAY | END 2020-10-16 14:41 | disposition home or self-care (01) | LOC: PT 09:59 | PROVIDERS: Visit Provider Thoracic Surgery (Cardiothoracic Vascular Surgery) | DX: Z95.2 Presence of prosthetic heart valve (principal); I25.10 Atherosclerotic heart disease of native coronary artery without angina pectoris | CPT/HCPCS: 93798 ==

== ENCOUNTER → 2020-08-16 12:39 | Outpatient (CLI) | payer OTHER, SELFPAY ==
[2020-08-16 14:19] LABS: INR 3.22 (0.9-1.1); Prothrombin Time 32.1 seconds (9.4-11.8)
== END ==
PROVIDERS: Visit Provider Internal Medicine Cardiovascular Disease
DX: Z51.81 Encounter for therapeutic drug level monitoring (principal); Z79.01 Long term (current) use of anticoagulants; Z95.2 Presence of prosthetic heart valve
CPT/HCPCS: 36415; 85610

== ENCOUNTER → 2020-08-28 10:38 | Outpatient (CLI) | payer OTHER, SELFPAY ==
[2020-08-28 11:52] LABS: Prothrombin Time 26.5 seconds (9.4-11.8)
== END ==
PROVIDERS: Visit Provider Internal Medicine Cardiovascular Disease
DX: Z51.81 Encounter for therapeutic drug level monitoring (principal); Z79.01 Long term (current) use of anticoagulants; Z95.2 Presence of prosthetic heart valve
CPT/HCPCS: 36415; 85610

== ENCOUNTER → 2020-09-03 11:19 | Outpatient (CLI) | payer OTHER, SELFPAY ==
[2020-09-03 13:02] LABS: INR 2.43 (0.9-1.1); Prothrombin Time 24.9 seconds (9.4-11.8)
== END ==
PROVIDERS: PCP Family Medicine; Visit Provider Internal Medicine Cardiovascular Disease
DX: Z51.81 Encounter for therapeutic drug level monitoring (principal); Z79.01 Long term (current) use of anticoagulants; Z95.2 Presence of prosthetic heart valve
CPT/HCPCS: 36415; 85610

== ENCOUNTER → 2020-09-10 13:25 | Outpatient (CLI) | payer OTHER, SELFPAY ==
[2020-09-10 14:52] LABS: INR 2.28 (0.9-1.1); Prothrombin Time 22.2 seconds (9.4-11.8)
== END ==
PROVIDERS: Visit Provider Internal Medicine Cardiovascular Disease
DX: Z51.81 Encounter for therapeutic drug level monitoring (principal); Z79.01 Long term (current) use of anticoagulants; Z95.2 Presence of prosthetic heart valve
CPT/HCPCS: 36415; 85610

== ENCOUNTER → 2020-09-13 10:49 | Outpatient (CLI) | payer OTHER, SELFPAY ==
[2020-09-13 15:46] LABS: INR 2.79 (0.9-1.1); Prothrombin Time 28.2 seconds (9.4-11.8)
== END ==
PROVIDERS: Visit Provider Internal Medicine Cardiovascular Disease
DX: Z51.81 Encounter for therapeutic drug level monitoring (principal); Z79.01 Long term (current) use of anticoagulants; Z95.2 Presence of prosthetic heart valve
CPT/HCPCS: 36415; 85610

== ENCOUNTER → 2020-09-16 12:27 | Outpatient (CLI) | payer OTHER, SELFPAY ==
--- NOTE | 2020-09-16 12:39 | XR_ITS ---
PROCEDURE: XR CHEST PORTABLE Referring Doctor: Jose Antonio Sanders Patient Age:55Y CLINICAL HISTORY: COVID 19 TESTING Exposed to covid. Questionable covid Asymptomatic at this time COMPARISON: No exams were available for comparison FINDINGS: Today's AP upright chest is compared to previous chest studies from March and June 2019 There has been interval sternotomy with what appears to be valve replacement.. The heart is upper normal in size. Sarah and mediastinal structures stable. Unremarkable The lungs appear clear with nothing acute. There were some mild chronic changes at the right infrahilar region right lung base again noted but this area appears stable. If anything appears slightly clearer than previous exam. The remainder of right upper chest clear. Left lung clear unremarkable. There may be some mild hyperexpansion at the upper lung bhardwaj. Chest wall and ribs unremarkable on this AP study. IMPRESSION: No acute findings. Lungs clear with nothing acute. Mild chronic changes Interval sternotomy and apparent valve replacement Dictated by: Tim Tafoya MD 09/16/2020 15:55 Tim Tafoya MD in [facility] 09/16/2020 15:55
[2020-09-16 13:32] LABS: Basophils % 0.1 % (0.1-2.0); Eosinophils # 0.4 K/mm3 (0.0-0.4); Eosinophils % 5.5 % (0.1-12.0); Hematocrit 43.1 % (37.0-47.0); Hemoglobin 13.4 g/dL (12.2-16.2); Lymphocytes # 2.5 K/mm3 (0.7-4.5); Lymphocytes % 37.1 % (10-50); Mean Corpuscular HGB Conc 31.1 g/dL (31.8-35.4); Mean Corpuscular Hemoglobin 25.2 pg (27.0-31.2); Mean Platelet Volume 7.4 fl (7.4-10.4); Monocytes # 0.3 K/mm3 (0.1-1.0); Monocytes % 4.1 % (1.7-9.3); Neutrophils # 3.6 K/mm3 (1.8-7.8); Neutrophils % 53.2 % (37.0-80.0); Platelet Count 291 K/mm3 (142-424); Red Blood Count 5.31 M/mm3 (4.20-5.40); Red Cell Distribution Width 14.2 % (11.5-17.5); White Blood Count 6.7 K/mm3 (4.8-10.8)
[2020-09-17 10:11] LABS: Covid-19 Nasal PCR Sendout UK Not Detected
== END ==
PROVIDERS: PCP Family Medicine; Visit Provider Family Medicine
DX: Z03.818 Encounter for observation for suspected exposure to other biological agents ruled out (principal)
CPT/HCPCS: 36415; 71045; 85025; U0003

== ENCOUNTER → 2020-09-17 07:24 | Outpatient (CLI) | payer OTHER, SELFPAY ==
[2020-09-17 07:54] LABS: INR 3.02 (0.9-1.1); Prothrombin Time 30.3 seconds (9.4-11.8)
== END ==
PROVIDERS: Visit Provider Internal Medicine Cardiovascular Disease
DX: Z51.81 Encounter for therapeutic drug level monitoring (principal); Z79.01 Long term (current) use of anticoagulants; Z95.2 Presence of prosthetic heart valve
CPT/HCPCS: 36415; 85610

== ENCOUNTER → 2020-09-26 11:54 | Outpatient (CLI) | payer OTHER, SELFPAY ==
[2020-09-26 12:25] LABS: INR 2.51 (0.9-1.1); Prothrombin Time 25.6 seconds (9.4-11.8)
== END ==
PROVIDERS: Visit Provider Internal Medicine Cardiovascular Disease
DX: Z51.81 Encounter for therapeutic drug level monitoring (principal); Z79.01 Long term (current) use of anticoagulants; Z95.2 Presence of prosthetic heart valve
CPT/HCPCS: 36415; 85610

== ENCOUNTER → 2020-10-03 08:59 | Outpatient (CLI) | payer OTHER, SELFPAY ==
[2020-10-03 10:03] LABS: INR 2.79 (0.9-1.1); Prothrombin Time 28.2 seconds (9.4-11.8)
[2020-10-03 10:31] LABS: Chloride 106 mmol/L (98-107); Potassium 4.1 mmoL/L (3.5-5.1); Sodium 139 mmol/L (136-145)
[2020-10-03 10:33] LABS: Alanine Aminotransferase 15 U/L (12-78); Aspartate Amino Transferase 21 U/L (14-36); Blood Urea Nitrogen 8 mg/dl (7-17); Estimated Glomerular Filt Rate 65 ml/min (>60); GFR (African American) 79 ML/MIN (>60)
[2020-10-03 10:34] LABS: Albumin Level 4.1 g/dl (3.5-5.0); Albumin/Globulin Ratio 1.6 (1.1-1.8); Alkaline Phosphatase 139 U/L (38-126); Anion Gap 10.1 mEq/L (5-15); Bilirubin,Total 0.6 mg/dl (0.2-1.3); Calcium 9.7 mg/dl (8.4-10.2); Carbon Dioxide 27 mmol/L (22.0-30.0); Chol/HDL Ratio 2.8 (1-3.5); Cholesterol 201 mg/dl (140-200); Globulin 2.6 g/dL (1.3-3.2); Glucose 85 mg/dl (74-100); HDL Cholesterol 73 mg/dl (40-60); Total Protein,Serum 6.7 g/dl (6.3-8.2); Triglycerides 198 mg/dl (30-150); VLDL Cholesterol 40 mg/dL (0-40)
[2020-10-03 10:45] LABS: Direct LDL Cholesterol 84.84 mg/dL (100-129)
[2020-10-03 11:05] LABS: Thyroid Stimulating Hormone 2.38 uIU/mL (0.465-4.68)
== END ==
PROVIDERS: Internal Medicine Cardiovascular Disease; Visit Provider Nurse Practitioner Family
DX: I10 Essential (primary) hypertension (principal); E03.9 Hypothyroidism, unspecified; Z79.899 Other long term (current) drug therapy
CPT/HCPCS: 36415; 80053; 80061; 84443; 85610

== ENCOUNTER → 2020-10-10 10:39 | Outpatient (CLI) | payer OTHER, SELFPAY ==
[2020-10-10 15:21] LABS: Prothrombin Time 55.3 seconds (9.4-11.8)
[2020-10-10 15:22] LABS: INR 5.85 (0.9-1.1)
== END ==
PROVIDERS: Visit Provider Internal Medicine Cardiovascular Disease
DX: Z51.81 Encounter for therapeutic drug level monitoring (principal); Z79.01 Long term (current) use of anticoagulants; Z95.2 Presence of prosthetic heart valve
CPT/HCPCS: 36415; 85610

== ENCOUNTER → 2020-10-12 10:58 | Outpatient (CLI) | payer OTHER, SELFPAY ==
[2020-10-12 11:35] LABS: INR 2.78 (0.9-1.1); Prothrombin Time 28.1 seconds (9.4-11.8)
== END ==
PROVIDERS: Visit Provider Internal Medicine Cardiovascular Disease
DX: Z51.81 Encounter for therapeutic drug level monitoring (principal); Z79.01 Long term (current) use of anticoagulants; Z95.2 Presence of prosthetic heart valve
CPT/HCPCS: 36415; 85610

== ENCOUNTER → 2020-10-17 09:56 | Outpatient (CLI) | payer OTHER, SELFPAY ==
[2020-10-17 11:06] LABS: INR 5.58 (0.9-1.1)
== END ==
PROVIDERS: Visit Provider Internal Medicine Cardiovascular Disease
DX: Z51.81 Encounter for therapeutic drug level monitoring (principal); Z79.01 Long term (current) use of anticoagulants; Z95.2 Presence of prosthetic heart valve
CPT/HCPCS: 36415; 85610

== ENCOUNTER → 2020-10-22 10:07 | Outpatient (CLI) | payer OTHER, SELFPAY ==
[2020-10-22 10:37] LABS: INR 3.15 (0.9-1.1); Prothrombin Time 31.5 seconds (9.4-11.8)
[2020-10-22 14:35] LABS: Microscopic, Urine URINE MICROSCOPIC (MICROSCOPIC)
[2020-10-22 14:59] LABS: Basophils % 0.3 % (0.1-2.0); Eosinophils # 0.1 K/mm3 (0.0-0.4); Eosinophils % 1.2 % (0.1-12.0); Hematocrit 41.4 % (37.0-47.0); Hemoglobin 13.7 g/dL (12.2-16.2); Lymphocytes % 30.9 % (10-50); Mean Corpuscular HGB Conc 33.1 g/dL (31.8-35.4); Mean Corpuscular Hemoglobin 25.9 pg (27.0-31.2); Mean Corpuscular Volume 78.4 fl (81-99); Mean Platelet Volume 6.8 fl (7.4-10.4); Monocytes # 0.4 K/mm3 (0.1-1.0); Monocytes % 3.7 % (1.7-9.3); Neutrophils # 6.2 K/mm3 (1.8-7.8); Neutrophils % 63.9 % (37.0-80.0); Platelet Count 276 K/mm3 (142-424); Red Blood Count 5.29 M/mm3 (4.20-5.40); Red Cell Distribution Width 15.8 % (11.5-17.5); White Blood Count 9.7 K/mm3 (4.8-10.8)
[2020-10-22 15:13] LABS: Appearance,Urine CLEAR (Clear); Bilirubin,Urine Negative (Negative); Blood, Urine Negative (Negative); Color,Urine YELLOW (Yellow); Glucose,Urine (UA) Negative (Negative); Ketones,Urine Negative (Negative); Leukocyte Esterase,Urine Negative (Negative); Nitrate,Urine Negative (Negative); Protein,Urine Negative (Negative); Specific Gravity, Urine 1.015 (1.005-1.030); Urobilinogen,Urine 0.2 EU/dl (0.2)
[2020-10-22 15:48] LABS: Chloride 111 mmol/L (98-107); Potassium 3.8 mmoL/L (3.5-5.1); Sodium 141 mmol/L (136-145)
[2020-10-22 15:51] LABS: Alanine Aminotransferase 17 U/L (12-78); Albumin Level 3.9 g/dl (3.5-5.0); Albumin/Globulin Ratio 1.4 (1.1-1.8); Alkaline Phosphatase 127 U/L (38-126); Amylase 91 U/L (30-110); Anion Gap 8.8 mEq/L (5-15); Aspartate Amino Transferase 23 U/L (14-36); Bilirubin,Total 0.6 mg/dl (0.2-1.3); Blood Urea Nitrogen 8 mg/dl (7-17); Calcium 9.4 mg/dl (8.4-10.2); Carbon Dioxide 25 mmol/L (22.0-30.0); Estimated Glomerular Filt Rate 75 ml/min (>60); GFR (African American) 91 ML/MIN (>60); Globulin 2.7 g/dL (1.3-3.2); Glucose 116 mg/dl (74-100); Lipase 225 U/L (23-300); Total Protein,Serum 6.6 g/dl (6.3-8.2)
[2020-10-22 16:18] LABS: Bacteria,Urine Trace /lpf; WBC,Urine Occasional #/hpf (0-3)
== END ==
PROVIDERS: Internal Medicine Adolescent Medicine; Visit Provider Internal Medicine Cardiovascular Disease
DX: R10.31 Right lower quadrant pain (principal); R11.0 Nausea
CPT/HCPCS: 36415; 80053; 81001; 82150; 83690; 85025; 85610

== ENCOUNTER → 2020-10-24 08:49 | Outpatient (CLI) | payer OTHER, SELFPAY ==
--- NOTE | 2020-10-24 09:15 | CT_ITS ---
PROCEDURE: CT ABDOMEN PELVIS W CON CLINICAL INDICATION: RLQ PAIN,NAUSEA COMPARISON: No exams were available for comparison TECHNIQUE: IV Contrast: 75ML OPTIRAY 350 Oral Contrast 20ml Gastroview Axial images obtained with sagittal and coronal reformats. All CT scans at the facility use one or more dose reduction, viz: automated exposure control, ma/kV adjustment per patient size (including targeted exams where dose is matched to indication, i.e. head), or iterative reconstruction technique. FINDINGS: Lower thorax: The lower lung bhardwaj are clear and there is no pleural fluid. Cardiac size is normal. ABDOMEN: Liver: No masses or biliary dilatation. Gallbladder: Post cholecystectomy Pancreas: No masses or peripancreatic fluid collections. Spleen: unremarkable there are couple tiny calcifications noted. Adrenals: unremarkable Kidneys/ureters: Kidneys are normal in size and show symmetrical function, both kidneys appearing normal. ABDOMEN & PELVIS: Stomach bowel: The stomach and duodenal sweep appear normal. The small bowel appears grossly normal. There is scattered stool mixed with oral contrast in the ascending and transverse colon. The descending and sigmoid colon are somewhat decompressed. There is mild diffuse diverticulosis of the sigmoid colon without evidence of diverticulitis. The rectum appears normal. Peritoneum: No abnormal fluid collections. No obvious inflammatory changes. No free air. Lymph nodes: No enlarged lymph nodes apparent. Vasculature: No evidence of abdominal aortic aneurysm. No retroperitoneal hemorrhage evident. Bones: No acute fracture PELVIS: Reproductive: Post hysterectomy, there are mild bilateral tubal ligation clips. Bladder: Nondistended. No obvious stones or masses. There is no cul-de-sac fluid. Appendix: Unremarkable. No distention or periappendiceal phlegmonous change. IMPRESSION: No acute upper abdominal pathology, mild diffuse diverticulosis sigmoid colon without diverticulitis, no other significant abnormality noted Dictated by: Dr. Gurpreet Hopper MD 10/24/2020 11:56 Dr. Gurpreet Hopper MD in [facility] 10/24/2020 11:56
== END ==
PROVIDERS: PCP Family Medicine; Visit Provider Internal Medicine Adolescent Medicine
DX: R10.31 Right lower quadrant pain (principal); R11.0 Nausea
CPT/HCPCS: 74177; Q9967

== ENCOUNTER → 2020-10-29 11:42 | Outpatient (CLI) | payer OTHER, SELFPAY ==
[2020-10-29 12:25] LABS: INR 1.79 (0.9-1.1); Prothrombin Time 18.8 seconds (9.4-11.8)
== END ==
PROVIDERS: Visit Provider Internal Medicine Cardiovascular Disease
DX: Z51.81 Encounter for therapeutic drug level monitoring (principal); Z79.01 Long term (current) use of anticoagulants; Z95.2 Presence of prosthetic heart valve
CPT/HCPCS: 36415; 85610

== ENCOUNTER → 2020-11-01 08:59 | Outpatient (CLI) | payer OTHER, SELFPAY ==
[2020-11-01 10:10] LABS: Prothrombin Time 28.4 seconds (9.4-11.8)
[2020-11-01 10:11] LABS: INR 2.81 (0.9-1.1)
--- NOTE | 2020-11-01 11:35 | XR_ITS ---
PROCEDURE: XR CHEST 2V CLINICAL HISTORY: ABDOMINAL SWELLING, STATUS POST MARIA C VALVE PLACEMENT COMPARISON: CR Chest from 03/27/2019 DX XR CHEST 2V from 07/06/[address] CHEST WO CON from 12/09/2019 CR XR CHEST PORTABLE from 09/16/2020 FINDINGS: Prior median sternotomy with mitral valve replacement. Normal heart size. The lungs are clear without infiltrates, suspicious nodules, or pleural effusions. No acute bony abnormalities. IMPRESSION: No acute findings. Dictated by: Zi Quintana MD 11/01/2020 17:23 Zi Quintana MD in [facility] 11/01/2020 17:23
[2020-11-01 11:53] LABS: Basophils % 0.1 % (0.1-2.0); Eosinophils # 0.1 K/mm3 (0.0-0.4); Hematocrit 42.7 % (37.0-47.0); Hemoglobin 12.6 g/dL (12.2-16.2); Lymphocytes # 3.3 K/mm3 (0.7-4.5); Lymphocytes % 38.1 % (10-50); Mean Corpuscular HGB Conc 29.6 g/dL (31.8-35.4); Mean Corpuscular Hemoglobin 24.1 pg (27.0-31.2); Mean Corpuscular Volume 81.3 fl (81-99); Mean Platelet Volume 7.5 fl (7.4-10.4); Monocytes # 0.4 K/mm3 (0.1-1.0); Monocytes % 4.2 % (1.7-9.3); Neutrophils # 4.9 K/mm3 (1.8-7.8); Neutrophils % 56.5 % (37.0-80.0); Platelet Count 307 K/mm3 (142-424); Red Blood Count 5.25 M/mm3 (4.20-5.40); Red Cell Distribution Width 15.9 % (11.5-17.5); White Blood Count 8.7 K/mm3 (4.8-10.8)
[2020-11-01 11:57] LABS: Chloride 105 mmol/L (98-107); Sodium 140 mmol/L (136-145)
[2020-11-01 12:00] LABS: Alanine Aminotransferase 24 U/L (12-78); Albumin/Globulin Ratio 1.4 (1.1-1.8); Alkaline Phosphatase 137 U/L (38-126); Amylase 82 U/L (30-110); Aspartate Amino Transferase 29 U/L (14-36); Bilirubin,Total 0.6 mg/dl (0.2-1.3); Blood Urea Nitrogen 9 mg/dl (7-17); Calcium 9.7 mg/dl (8.4-10.2); Carbon Dioxide 30 mmol/L (22.0-30.0); Estimated Glomerular Filt Rate 65 ml/min (>60); GFR (African American) 79 ML/MIN (>60); Globulin 2.9 g/dL (1.3-3.2); Glucose 103 mg/dl (74-100); Lipase 156 U/L (23-300); Total Protein,Serum 6.9 g/dl (6.3-8.2)
== END ==
PROVIDERS: PCP Internal Medicine Adolescent Medicine; Visit Provider Internal Medicine Cardiovascular Disease
DX: R19.00 Intra-abdominal and pelvic swelling, mass and lump, unspecified site (principal); R79.1 Abnormal coagulation profile; Z95.2 Presence of prosthetic heart valve
CPT/HCPCS: 36415; 71046; 80053; 82150; 83690; 85025; 85610

== ENCOUNTER → 2020-11-02 14:40 | Outpatient (CLI) | payer OTHER, SELFPAY ==
--- NOTE | 2020-11-02 | CA_ITS ---
APPROVED REPORT EXAM: Comprehensive 2D, Doppler, and color-flow Echocardiogram [employer]: Faye Hearn CRT Ht: 5 ft 2 in Wt: 180lbs BSA: 1.83 BP: 108/70 mmHg Indications: Diabetes, Peripheral Edema, Hypertension/HDD, GERD, MVR 2D Dimensions LVOT 1.87 cm (M/F) 1.5-2.5 M-Mode Dimensions RVDd 1.68 cm (0.9-2.6) LA Diam 2.77 cm (1.9-4.0) LVDd 4.73 cm (3.5-5.7) Ao Diam 2.63 cm (2.0-3.7) LVDs 3.89 cm (3.5-5.7) IVSd 0.80 cm (0.6-1.1) PWd 0.84 cm (0.6-1.1) EF (Teich) 37.00% FS 17.80% EDV (Teich) 103.90 mL ESV (Teich) 65.50 mL LV Diastology E Decel Time 195.00 (160-240 msec) E/A Ratio 1.06 Aortic Valve AO Peak GR. 5.30 mmHg Mitral Valve MV E Max Hawk. 106.00 (40-130 cm/s) MV A Velocity 100.00 (40-130 cm/s) E/A Ratio 1.06 MV Decel. Time 195.00 (160-240 ms) MV Mean Gr. 2.20 (<2mmHg) MV PHT 57.00 ms Pulmonary Valve PV Peak Velocity 42.00 (50-150 cm/s) Tricuspid Valve TR P. Velocity 169.00 cm/s Left Ventricle Technically difficult study because of the patient factors and poor acoustic windows. Left atrium is mildly enlarged, left ventricle is normal size, mild concentric left ventricular hypertrophy, visually estimated ejection fraction approximately 45%, there is abnormal septal motion. There is no regional wall motion abnormality. Diastolic parameters are inconclusive. Right Ventricle Right atrium and right ventricle are normal size and contractility. Aortic Valve Aortic valve is thickened and calcified leaflet continue to display mobility, there is no aortic stenosis or aortic insufficiency. Mitral Valve There is mechanical prosthetic valve noted in the mitral position, the valve is well-seated, the mean gradient is in acceptable range, there is no significant mitral regurgitation. Tricuspid Valve Tricuspid valve grossly normal, there is mild tricuspid regurgitation, tricuspid regurgitation jet velocity is inadequate for calculation of the right ventricular systolic pressure. Pulmonic Valve Pulmonic valve is poorly visualized. Great Vessels Aortic root is normal size. Pericardium No significant pericardial effusion noted. Conclusion 1. Mildly enlarged left atrium, normal left ventricular size, mild concentric left ventricular hypertrophy, visually estimated ejection fraction 45% with no regional wall motion abnormality, there is abnormal septal motion, diastolic parameters are inconclusive. 2. Normal functioning mechanical prosthetic valve in the mitral position 3. No significant pericardial effusion noted. Electronically signed by : Vern Valera, 11/02/2020 21:02:31
== END ==
PROVIDERS: PCP Internal Medicine Adolescent Medicine; Visit Provider Internal Medicine Adolescent Medicine
DX: Z95.2 Presence of prosthetic heart valve (principal); I34.0 Nonrheumatic mitral (valve) insufficiency
CPT/HCPCS: 93306

== ENCOUNTER → 2020-11-06 09:51 | Outpatient (CLI) | payer OTHER, SELFPAY ==
[2020-11-06 10:23] LABS: INR 2.87 (0.9-1.1); Prothrombin Time 28.9 seconds (9.4-11.8)
== END ==
PROVIDERS: Visit Provider Internal Medicine Cardiovascular Disease
DX: Z51.81 Encounter for therapeutic drug level monitoring (principal); Z79.01 Long term (current) use of anticoagulants; Z95.2 Presence of prosthetic heart valve
CPT/HCPCS: 36415; 85610

== ENCOUNTER → 2020-11-13 09:38 | Outpatient (CLI) | payer OTHER, SELFPAY ==
[2020-11-13 11:13] LABS: INR 3.34 (0.9-1.1); Prothrombin Time 33.2 seconds (9.4-11.8)
== END ==
PROVIDERS: Visit Provider Internal Medicine Cardiovascular Disease
DX: Z51.81 Encounter for therapeutic drug level monitoring (principal); Z79.01 Long term (current) use of anticoagulants; Z95.2 Presence of prosthetic heart valve
CPT/HCPCS: 36415; 85610

== ENCOUNTER → 2020-11-20 10:26 | Outpatient (CLI) | payer OTHER, SELFPAY ==
[2020-11-20 12:24] LABS: INR 2.29 (0.9-1.1); Prothrombin Time 23.6 seconds (9.4-11.8)
== END ==
PROVIDERS: Visit Provider Internal Medicine Cardiovascular Disease
DX: Z51.81 Encounter for therapeutic drug level monitoring (principal); Z79.01 Long term (current) use of anticoagulants; Z95.2 Presence of prosthetic heart valve
CPT/HCPCS: 36415; 85610

== ENCOUNTER → 2020-11-26 10:44 | Outpatient (CLI) | payer OTHER, SELFPAY ==
[2020-11-26 11:27] LABS: INR 3.03 (0.9-1.1); Prothrombin Time 30.4 seconds (9.4-11.8)
== END ==
PROVIDERS: Visit Provider Internal Medicine Cardiovascular Disease
DX: Z51.81 Encounter for therapeutic drug level monitoring (principal); Z79.01 Long term (current) use of anticoagulants; Z95.2 Presence of prosthetic heart valve
CPT/HCPCS: 36415; 85610

== ENCOUNTER → 2020-12-03 12:36 | Outpatient (CLI) | payer OTHER, SELFPAY ==
[2020-12-03 13:29] LABS: Chloride 109 mmol/L (98-107); Sodium 140 mmol/L (136-145)
[2020-12-03 13:30] LABS: Potassium 4.2 mmoL/L (3.5-5.1)
[2020-12-03 13:32] LABS: Blood Urea Nitrogen 7 mg/dl (7-17); Estimated Glomerular Filt Rate 47 ml/min (>60); GFR (African American) 57 ML/MIN (>60)
[2020-12-03 13:33] LABS: Anion Gap 7.2 mEq/L (5-15); Calcium 9.7 mg/dl (8.4-10.2); Carbon Dioxide 28 mmol/L (22.0-30.0); Glucose 112 mg/dl (74-100)
== END ==
PROVIDERS: Visit Provider Internal Medicine Adolescent Medicine
DX: I50.22 Chronic systolic (congestive) heart failure (principal)
CPT/HCPCS: 36415; 80048

== ENCOUNTER → 2020-12-08 11:27 | Outpatient (CLI) | payer OTHER, SELFPAY ==
[2020-12-08 11:54] LABS: INR 3.76 (0.9-1.1)
== END ==
PROVIDERS: Visit Provider Internal Medicine Cardiovascular Disease
DX: Z51.81 Encounter for therapeutic drug level monitoring (principal); Z79.01 Long term (current) use of anticoagulants; Z95.2 Presence of prosthetic heart valve
CPT/HCPCS: 36415; 85610

== ENCOUNTER → 2020-12-18 11:42 | Outpatient (CLI) | payer OTHER, SELFPAY ==
[2020-12-18 13:09] LABS: INR 6.29 (0.9-1.1); Prothrombin Time 59.1 seconds (9.4-11.8)
== END ==
PROVIDERS: Visit Provider Internal Medicine Cardiovascular Disease
DX: Z51.81 Encounter for therapeutic drug level monitoring (principal); Z79.01 Long term (current) use of anticoagulants; Z95.2 Presence of prosthetic heart valve
CPT/HCPCS: 36415; 85610

== ENCOUNTER → 2020-12-21 08:21 | Outpatient (CLI) | payer OTHER, SELFPAY ==
[2020-12-21 09:24] LABS: INR 1.89 (0.9-1.1); Prothrombin Time 19.8 seconds (9.4-11.8)
== END ==
PROVIDERS: Visit Provider Internal Medicine Cardiovascular Disease
DX: Z51.81 Encounter for therapeutic drug level monitoring (principal); Z79.01 Long term (current) use of anticoagulants; Z95.2 Presence of prosthetic heart valve
CPT/HCPCS: 36415; 85610

== ENCOUNTER → 2020-12-24 10:29 | Outpatient (CLI) | payer OTHER, SELFPAY ==
[2020-12-24 11:01] LABS: INR 2.68 (0.9-1.1); Prothrombin Time 29.4 seconds (9.4-11.8)
== END ==
PROVIDERS: Visit Provider Internal Medicine Cardiovascular Disease
DX: Z51.81 Encounter for therapeutic drug level monitoring (principal); Z79.01 Long term (current) use of anticoagulants; Z95.2 Presence of prosthetic heart valve
CPT/HCPCS: 36415; 85610

== ENCOUNTER → 2020-12-28 09:36 | Outpatient (CLI) | payer OTHER, SELFPAY ==
[2020-12-28 10:17] LABS: INR 2.72 (0.9-1.1); Prothrombin Time 29.8 seconds (9.4-11.8)
== END ==
PROVIDERS: Visit Provider Internal Medicine Cardiovascular Disease
DX: Z51.81 Encounter for therapeutic drug level monitoring (principal); Z79.01 Long term (current) use of anticoagulants; Z95.2 Presence of prosthetic heart valve
CPT/HCPCS: 36415; 85610

== ENCOUNTER → 2021-01-02 09:04 | Outpatient (CLI) | payer OTHER, SELFPAY ==
[2021-01-02 09:31] LABS: INR 3.42 (0.9-1.1); Prothrombin Time 36.8 seconds (9.4-11.8)
== END ==
PROVIDERS: Visit Provider Internal Medicine Cardiovascular Disease
DX: Z51.81 Encounter for therapeutic drug level monitoring (principal); Z79.01 Long term (current) use of anticoagulants; Z95.2 Presence of prosthetic heart valve
CPT/HCPCS: 36415; 85610

== ENCOUNTER → 2021-01-08 08:40 | Outpatient (CLI) | payer OTHER, SELFPAY ==
[2021-01-08 09:50] LABS: Prothrombin Time 40.6 seconds (9.4-11.8)
== END ==
PROVIDERS: Visit Provider Internal Medicine Cardiovascular Disease
DX: Z51.81 Encounter for therapeutic drug level monitoring (principal); Z79.01 Long term (current) use of anticoagulants; Z95.2 Presence of prosthetic heart valve
CPT/HCPCS: 36415; 85610

== ENCOUNTER → 2021-01-15 11:00 | Outpatient (CLI) | payer OTHER, SELFPAY ==
[2021-01-15 11:36] LABS: Prothrombin Time 33.6 seconds (10.1-12.5)
== END ==
PROVIDERS: Visit Provider Internal Medicine Cardiovascular Disease
DX: Z51.81 Encounter for therapeutic drug level monitoring (principal); Z79.01 Long term (current) use of anticoagulants; Z95.2 Presence of prosthetic heart valve
CPT/HCPCS: 36415; 85610

== ENCOUNTER → 2021-01-22 09:16 | Outpatient (CLI) | payer OTHER, SELFPAY ==
[2021-01-22 09:48] LABS: INR 2.53 (0.9-1.1); Prothrombin Time 27.9 seconds (10.1-12.5)
== END ==
PROVIDERS: Visit Provider Internal Medicine Cardiovascular Disease
DX: Z51.81 Encounter for therapeutic drug level monitoring (principal); Z79.01 Long term (current) use of anticoagulants; Z95.2 Presence of prosthetic heart valve
CPT/HCPCS: 36415; 85610

== ENCOUNTER → 2021-01-29 10:38 | Outpatient (CLI) | payer OTHER, SELFPAY ==
[2021-01-29 11:09] LABS: INR 2.31 (0.9-1.1); Prothrombin Time 25.6 seconds (10.1-12.5)
== END ==
PROVIDERS: Visit Provider Internal Medicine Cardiovascular Disease
DX: Z95.2 Presence of prosthetic heart valve (principal)
CPT/HCPCS: 36415; 85610

== ENCOUNTER → 2021-02-05 09:27 | Outpatient (CLI) | payer OTHER, SELFPAY ==
[2021-02-05 10:00] LABS: INR 3.12 (0.9-1.1); Prothrombin Time 33.8 seconds (10.1-12.5)
== END ==
PROVIDERS: Visit Provider Internal Medicine Cardiovascular Disease
DX: Z51.81 Encounter for therapeutic drug level monitoring (principal); Z79.01 Long term (current) use of anticoagulants; Z95.2 Presence of prosthetic heart valve
CPT/HCPCS: 36415; 85610

== ENCOUNTER → 2021-02-12 08:57 | Outpatient (CLI) | payer OTHER, SELFPAY ==
[2021-02-12 09:39] LABS: INR 3.56 (0.9-1.1); Prothrombin Time 38.2 seconds (10.1-12.5)
== END ==
PROVIDERS: Visit Provider Internal Medicine Cardiovascular Disease
DX: Z51.81 Encounter for therapeutic drug level monitoring (principal); Z79.01 Long term (current) use of anticoagulants
CPT/HCPCS: 36415; 85610

== ENCOUNTER → 2021-02-19 09:21 | Outpatient (CLI) | payer OTHER, SELFPAY ==
[2021-02-19 09:53] LABS: Prothrombin Time 37.6 seconds (10.1-12.5)
== END ==
PROVIDERS: Visit Provider Internal Medicine Cardiovascular Disease
DX: Z51.81 Encounter for therapeutic drug level monitoring (principal); Z79.01 Long term (current) use of anticoagulants; Z95.2 Presence of prosthetic heart valve
CPT/HCPCS: 36415; 85610

== ENCOUNTER → 2021-03-05 10:13 | Outpatient (CLI) | payer OTHER, SELFPAY ==
[2021-03-05 10:54] LABS: INR 2.42 (0.9-1.1); Prothrombin Time 26.7 seconds (10.1-12.5)
== END ==
PROVIDERS: Visit Provider Internal Medicine Cardiovascular Disease
DX: Z51.81 Encounter for therapeutic drug level monitoring (principal); Z79.01 Long term (current) use of anticoagulants; Z95.2 Presence of prosthetic heart valve
CPT/HCPCS: 36415; 85610

== ENCOUNTER → 2021-03-19 10:16 | Outpatient (CLI) | payer OTHER, SELFPAY ==
[2021-03-19 11:11] LABS: Prothrombin Time 37.6 seconds (10.1-12.5)
== END ==
PROVIDERS: Visit Provider Internal Medicine Cardiovascular Disease
DX: Z51.81 Encounter for therapeutic drug level monitoring (principal); Z79.01 Long term (current) use of anticoagulants; Z95.2 Presence of prosthetic heart valve
CPT/HCPCS: 36415; 85610

== ENCOUNTER → 2021-04-02 10:17 | Outpatient (CLI) | payer OTHER, SELFPAY ==
[2021-04-02 10:48] LABS: INR 2.64 (0.9-1.1)
== END ==
PROVIDERS: Visit Provider Ophthalmology
DX: Z51.81 Encounter for therapeutic drug level monitoring (principal); Z79.01 Long term (current) use of anticoagulants; Z95.2 Presence of prosthetic heart valve
CPT/HCPCS: 36415; 85610

== ENCOUNTER → 2021-04-23 10:38 | Outpatient (CLI) | payer OTHER, SELFPAY ==
[2021-04-23 11:05] LABS: Prothrombin Time 20.9 seconds (10.1-12.5)
[2021-04-23 11:09] LABS: INR 1.85 (0.9-1.1)
== END ==
PROVIDERS: Visit Provider Internal Medicine Cardiovascular Disease
DX: Z51.81 Encounter for therapeutic drug level monitoring (principal); Z79.01 Long term (current) use of anticoagulants; Z95.2 Presence of prosthetic heart valve
CPT/HCPCS: 36415; 85610

== ENCOUNTER → 2021-04-26 10:31 | Outpatient (CLI) | payer OTHER, SELFPAY ==
[2021-04-26 11:04] LABS: Prothrombin Time 24.5 seconds (10.1-12.5)
== END ==
PROVIDERS: Visit Provider Internal Medicine Cardiovascular Disease
DX: Z51.81 Encounter for therapeutic drug level monitoring (principal); Z79.01 Long term (current) use of anticoagulants; Z95.2 Presence of prosthetic heart valve
CPT/HCPCS: 36415; 85610

== ENCOUNTER → 2021-05-03 10:07 | Outpatient (CLI) | payer OTHER, SELFPAY ==
[2021-05-03 10:31] LABS: Prothrombin Time 31.4 seconds (10.1-12.5)
[2021-05-03 10:33] LABS: INR 2.88 (0.9-1.1)
== END ==
PROVIDERS: Visit Provider Internal Medicine Cardiovascular Disease
DX: Z51.81 Encounter for therapeutic drug level monitoring (principal); Z79.01 Long term (current) use of anticoagulants; Z95.2 Presence of prosthetic heart valve
CPT/HCPCS: 36415; 85610

== ENCOUNTER → 2021-05-17 09:34 | Outpatient (CLI) | payer OTHER, SELFPAY ==
[2021-05-17 09:57] LABS: Prothrombin Time 25.4 seconds (10.1-12.5)
[2021-05-17 09:58] LABS: INR 2.29 (0.9-1.1)
== END ==
PROVIDERS: Visit Provider Nurse Practitioner Family
DX: Z51.81 Encounter for therapeutic drug level monitoring (principal); Z79.01 Long term (current) use of anticoagulants; Z95.2 Presence of prosthetic heart valve
CPT/HCPCS: 36415; 85610

== ENCOUNTER → 2021-05-24 13:03 | Outpatient (CLI) | payer OTHER, SELFPAY ==
[2021-05-24 13:28] LABS: Prothrombin Time 31.6 seconds (10.1-12.5)
== END ==
PROVIDERS: Visit Provider Internal Medicine Cardiovascular Disease
DX: Z51.81 Encounter for therapeutic drug level monitoring (principal); Z79.01 Long term (current) use of anticoagulants; Z95.2 Presence of prosthetic heart valve
CPT/HCPCS: 36415; 85610

== ENCOUNTER → 2021-05-31 08:28 | Outpatient (CLI) | payer OTHER, SELFPAY ==
[2021-05-31 08:52] LABS: Prothrombin Time 32.6 seconds (10.1-12.5)
== END ==
PROVIDERS: Visit Provider Internal Medicine Cardiovascular Disease
DX: Z51.81 Encounter for therapeutic drug level monitoring (principal); Z79.01 Long term (current) use of anticoagulants; Z95.2 Presence of prosthetic heart valve
CPT/HCPCS: 36415; 85610

== ENCOUNTER → 2021-06-13 11:40 | Outpatient (CLI) | payer OTHER, SELFPAY ==
[2021-06-13 12:26] LABS: Prothrombin Time 37.8 seconds (10.1-12.5)
[2021-06-13 12:30] LABS: INR 3.52 (0.9-1.1)
[2021-06-13 12:33] LABS: Basophils % 0.4 % (0.1-2.0); Eosinophils # 0.1 K/mm3 (0.0-0.4); Eosinophils % 1.5 % (0.1-12.0); Hematocrit 40.6 % (37.0-47.0); Hemoglobin 13.4 g/dL (12.2-16.2); Lymphocytes # 3.1 K/mm3 (0.7-4.5); Lymphocytes % 31.5 % (10-50); Mean Corpuscular HGB Conc 33.1 g/dL (31.8-35.4); Mean Corpuscular Hemoglobin 25.8 pg (27.0-31.2); Mean Corpuscular Volume 78.1 fl (81-99); Mean Platelet Volume 7.7 fl (7.4-10.4); Monocytes # 0.4 K/mm3 (0.1-1.0); Monocytes % 3.8 % (1.7-9.3); Neutrophils # 6.2 K/mm3 (1.8-7.8); Neutrophils % 62.7 % (37.0-80.0); Platelet Count 241 K/mm3 (142-424); Red Cell Distribution Width 16.8 % (11.5-17.5); White Blood Count 9.8 K/mm3 (4.8-10.8)
[2021-06-13 13:15] LABS: Alanine Aminotransferase 54 U/L (12-78); Albumin Level 3.8 g/dl (3.5-5.0); Albumin/Globulin Ratio 1.5 (1.1-1.8); Alkaline Phosphatase 128 U/L (38-126); Anion Gap 10.2 mEq/L (5-15); Aspartate Amino Transferase 46 U/L (14-36); Bilirubin,Total 0.5 mg/dl (0.2-1.3); Blood Urea Nitrogen 9 mg/dl (7-17); Carbon Dioxide 27 mmol/L (22.0-30.0); Chloride 108 mmol/L (98-107); Estimated Glomerular Filt Rate 75 ml/min (>60); GFR (African American) 91 ML/MIN (>60); Globulin 2.6 g/dL (1.3-3.2); Glucose 104 mg/dl (74-100); Potassium 4.2 mmoL/L (3.5-5.1); Sodium 141 mmol/L (136-145); Total Protein,Serum 6.4 g/dl (6.3-8.2)
[2021-06-13 13:45] LABS: Thyroid Stimulating Hormone 2.31 uIU/mL (0.465-4.68)
== END ==
PROVIDERS: Nurse Practitioner Family; Visit Provider Internal Medicine Cardiovascular Disease
DX: R42 Dizziness and giddiness (principal); E03.9 Hypothyroidism, unspecified; H65.06 Acute serous otitis media, recurrent, bilateral; Z51.81 Encounter for therapeutic drug level monitoring; Z79.01 Long term (current) use of anticoagulants; Z95.2 Presence of prosthetic heart valve
CPT/HCPCS: 36415; 80053; 84443; 85025; 85610

== ENCOUNTER → 2021-07-05 10:51 | Outpatient (CLI) | payer OTHER, SELFPAY ==
[2021-07-05 11:36] LABS: Prothrombin Time 21.6 seconds (10.1-12.5)
[2021-07-05 11:37] LABS: INR 1.92 (0.9-1.1)
== END ==
PROVIDERS: Visit Provider Internal Medicine Cardiovascular Disease
DX: Z51.81 Encounter for therapeutic drug level monitoring (principal); Z79.01 Long term (current) use of anticoagulants; Z95.2 Presence of prosthetic heart valve
CPT/HCPCS: 36415; 85610

== ENCOUNTER → 2021-07-12 11:22 | Outpatient (CLI) | payer OTHER, SELFPAY ==
[2021-07-12 11:59] LABS: Prothrombin Time 25.7 seconds (10.1-12.5)
[2021-07-12 12:00] LABS: INR 2.32 (0.9-1.1)
== END ==
PROVIDERS: Internal Medicine Cardiovascular Disease; Visit Provider Internal Medicine Cardiovascular Disease
DX: Z51.81 Encounter for therapeutic drug level monitoring (principal); Z79.01 Long term (current) use of anticoagulants; Z95.2 Presence of prosthetic heart valve
CPT/HCPCS: 36415; 85610

== ENCOUNTER → 2021-07-18 09:28 | Outpatient (CLI) | payer OTHER, SELFPAY ==
[2021-07-18 09:59] LABS: Prothrombin Time 32.1 seconds (10.1-12.5)
[2021-07-18 10:03] LABS: INR 2.95 (0.9-1.1)
== END ==
PROVIDERS: Visit Provider Internal Medicine Cardiovascular Disease
DX: Z51.81 Encounter for therapeutic drug level monitoring (principal); Z79.01 Long term (current) use of anticoagulants; Z95.2 Presence of prosthetic heart valve
CPT/HCPCS: 36415; 85610

== ENCOUNTER → 2021-07-29 11:19 | Outpatient (CLI) | payer OTHER, SELFPAY ==
[2021-07-29 12:29] LABS: INR 3.62 (0.9-1.1); Prothrombin Time 37.2 seconds (10.1-12.5)
== END ==
PROVIDERS: Visit Provider Internal Medicine Cardiovascular Disease
DX: Z51.81 Encounter for therapeutic drug level monitoring (principal); Z79.01 Long term (current) use of anticoagulants; Z95.2 Presence of prosthetic heart valve; R79.1 Abnormal coagulation profile
CPT/HCPCS: 36415; 85610

== ENCOUNTER → 2021-08-12 11:46 | Outpatient (CLI) | payer OTHER, SELFPAY ==
[2021-08-12 12:41] LABS: INR 2.45 (0.9-1.1); Prothrombin Time 25.9 seconds (10.1-12.5)
== END ==
PROVIDERS: Visit Provider Internal Medicine Cardiovascular Disease
DX: Z51.81 Encounter for therapeutic drug level monitoring (principal); Z79.01 Long term (current) use of anticoagulants; Z95.2 Presence of prosthetic heart valve
CPT/HCPCS: 36415; 85610

== ENCOUNTER → 2021-08-19 10:27 | Outpatient (CLI) | payer OTHER, SELFPAY ==
[2021-08-19 10:49] LABS: INR 3.29 (0.9-1.1)
== END ==
PROVIDERS: Visit Provider Internal Medicine Cardiovascular Disease
DX: Z51.81 Encounter for therapeutic drug level monitoring (principal); Z79.01 Long term (current) use of anticoagulants; Z95.2 Presence of prosthetic heart valve
CPT/HCPCS: 36415; 85610

== ENCOUNTER → 2021-08-28 10:10 | Outpatient (CLI) | payer OTHER, SELFPAY ==
[2021-08-28 10:34] LABS: INR 4.09 (0.9-1.1); Prothrombin Time 41.6 seconds (10.1-12.5)
== END ==
PROVIDERS: Visit Provider Internal Medicine Cardiovascular Disease
DX: Z51.81 Encounter for therapeutic drug level monitoring (principal); Z79.01 Long term (current) use of anticoagulants; Z95.2 Presence of prosthetic heart valve
CPT/HCPCS: 36415; 85610

== ENCOUNTER → 2021-09-04 09:41 | Outpatient (CLI) | payer OTHER, SELFPAY ==
[2021-09-04 10:04] LABS: INR 3.57 (0.9-1.1); Prothrombin Time 36.7 seconds (10.1-12.5)
== END ==
PROVIDERS: Visit Provider Internal Medicine Cardiovascular Disease
DX: Z51.81 Encounter for therapeutic drug level monitoring (principal); Z79.01 Long term (current) use of anticoagulants; Z95.2 Presence of prosthetic heart valve
CPT/HCPCS: 36415; 85610

== ENCOUNTER → 2021-09-11 09:14 | Outpatient (CLI) | payer OTHER, SELFPAY ==
[2021-09-11 09:58] LABS: Prothrombin Time 40.8 seconds (10.1-12.5)
== END ==
PROVIDERS: Visit Provider Internal Medicine Cardiovascular Disease
DX: Z51.81 Encounter for therapeutic drug level monitoring (principal); Z79.01 Long term (current) use of anticoagulants; Z95.2 Presence of prosthetic heart valve
CPT/HCPCS: 36415; 85610

== ENCOUNTER → 2021-09-27 10:23 | Outpatient (CLI) | payer OTHER, SELFPAY ==
[2021-09-27 10:59] LABS: INR 2.98 (0.9-1.1); Prothrombin Time 31.1 seconds (10.1-12.5)
== END ==
PROVIDERS: Internal Medicine Cardiovascular Disease; Visit Provider Internal Medicine Cardiovascular Disease
DX: Z51.81 Encounter for therapeutic drug level monitoring (principal); Z79.01 Long term (current) use of anticoagulants; Z95.2 Presence of prosthetic heart valve
CPT/HCPCS: 36415; 85610

== ENCOUNTER → 2021-10-16 11:44 | Outpatient (CLI) | payer OTHER, SELFPAY ==
[2021-10-16 12:16] LABS: INR 2.69 (0.9-1.1); Prothrombin Time 28.2 seconds (10.1-12.5)
== END ==
PROVIDERS: Visit Provider Internal Medicine Cardiovascular Disease
DX: Z51.81 Encounter for therapeutic drug level monitoring (principal); Z79.01 Long term (current) use of anticoagulants; Z95.2 Presence of prosthetic heart valve
CPT/HCPCS: 36415; 85610

== ENCOUNTER → 2021-11-18 13:14 | Outpatient (CLI) | payer OTHER, SELFPAY ==
[2021-11-18 13:39] LABS: INR 3.58 (0.9-1.1); Prothrombin Time 36.8 seconds (10.1-12.5)
== END ==
PROVIDERS: PCP Internal Medicine Cardiovascular Disease; Visit Provider Internal Medicine Cardiovascular Disease
DX: Z51.81 Encounter for therapeutic drug level monitoring (principal); Z79.01 Long term (current) use of anticoagulants; Z95.2 Presence of prosthetic heart valve
CPT/HCPCS: 36415; 85610

== ENCOUNTER → 2021-12-04 10:49 | Outpatient (CLI) | payer OTHER, SELFPAY ==
[2021-12-04 11:53] LABS: INR 3.08 (0.9-1.1)
== END ==
PROVIDERS: PCP Internal Medicine Adolescent Medicine; Visit Provider Internal Medicine Cardiovascular Disease
DX: Z51.81 Encounter for therapeutic drug level monitoring (principal); Z79.01 Long term (current) use of anticoagulants; Z95.2 Presence of prosthetic heart valve
CPT/HCPCS: 36415; 85610

== ENCOUNTER → 2022-01-16 10:18 | Outpatient (CLI) | payer OTHER, SELFPAY ==
[2022-01-16 10:47] LABS: INR 2.22 (0.9-1.1); Prothrombin Time 23.6 seconds (10.1-12.5)
== END ==
PROVIDERS: Internal Medicine Cardiovascular Disease; Visit Provider Internal Medicine Cardiovascular Disease
DX: Z51.81 Encounter for therapeutic drug level monitoring (principal); Z79.01 Long term (current) use of anticoagulants; Z95.2 Presence of prosthetic heart valve
CPT/HCPCS: 36415; 85610

== ENCOUNTER → 2022-02-06 10:12 | Outpatient (CLI) | payer OTHER, SELFPAY ==
[2022-02-06 11:09] LABS: INR 2.58 (0.9-1.1); Prothrombin Time 27.2 seconds (10.1-12.5)
== END ==
PROVIDERS: Visit Provider Internal Medicine Cardiovascular Disease
DX: Z51.81 Encounter for therapeutic drug level monitoring (principal); Z79.01 Long term (current) use of anticoagulants; Z95.2 Presence of prosthetic heart valve
CPT/HCPCS: 36415; 85610

== ENCOUNTER → 2022-03-18 11:02 | Outpatient (CLI) | payer OTHER, SELFPAY ==
[2022-03-18 11:46] LABS: INR 4.36 (0.9-1.1); Prothrombin Time 44.2 seconds (10.1-12.5)
== END ==
PROVIDERS: PCP Internal Medicine Adolescent Medicine; Visit Provider Internal Medicine Cardiovascular Disease
DX: Z51.81 Encounter for therapeutic drug level monitoring (principal); Z79.01 Long term (current) use of anticoagulants; Z95.2 Presence of prosthetic heart valve
CPT/HCPCS: 36415; 85610

== ENCOUNTER → 2022-06-03 08:53 | Outpatient (CLI) | payer MEDICARE, OTHER, SELFPAY ==
[2022-06-03 09:20] LABS: INR 2.14 (0.9-1.1); Prothrombin Time 22.9 seconds (10.1-12.5)
== END ==
PROVIDERS: Internal Medicine Cardiovascular Disease; PCP Internal Medicine Adolescent Medicine; Visit Provider Internal Medicine Cardiovascular Disease
DX: Z51.81 Encounter for therapeutic drug level monitoring (principal); Z79.01 Long term (current) use of anticoagulants; Z95.2 Presence of prosthetic heart valve
CPT/HCPCS: 36415; 85610

== ENCOUNTER → 2022-06-18 10:02 | Outpatient (CLI) | payer MEDICARE, OTHER, SELFPAY ==
[2022-06-18 10:59] LABS: INR 2.16 (0.9-1.1); Prothrombin Time 23.1 seconds (10.1-12.5)
== END ==
PROVIDERS: Internal Medicine Cardiovascular Disease; PCP Internal Medicine Adolescent Medicine; Visit Provider Internal Medicine Cardiovascular Disease
DX: Z51.81 Encounter for therapeutic drug level monitoring (principal); Z79.01 Long term (current) use of anticoagulants; Z95.2 Presence of prosthetic heart valve
CPT/HCPCS: 36415; 85610

== ENCOUNTER 2022-07-10 11:00 | Emergency (ER) | payer MEDICARE, OTHER, SELFPAY ==
[2022-07-10 11:00] VITALS: BP 170/92; PULSE 85; RESP 18; TEMP 36.7; O2SAT 98; BMI 32.5
--- NOTE | 2022-07-10 11:11 | EXP.UTC ---
Discharge Plan Disposition Patient Disposition: Home, Self-Care Condition: Good Prescriptions Prescriptions: New benzonatate [benzonatate] 100 mg capsule 100 mg PO TIDP PRN (Reason: Cough) Qty: 30 0RF methylprednisolone 4 mg Tablets,Dose Pack 4 mg PO DIRECTED Qty: 21 0RF cefdinir 300 mg capsule 300 mg PO BID Qty: 20 0RF No Action metformin 500 mg tablet 500 mg PO BID omeprazole 20 mg capsule,delayed release(DR/EC) 20 mg PO DAILY levothyroxine [Synthroid] 88 mcg tablet 88 mcg PO DAILY atorvastatin 40 mg tablet 40 mg PO DAILY furosemide 20 mg tablet 20 mg PO DAILY Label Comments: TAKE 1 TABLET BY MOUTH ONCE DAILY fluticasone propionate [Flonase Allergy Relief] 50 mcg/actuation spray,suspension 1 spray INTRANASAL DAILY Qty: 9.9 0RF Rx Instructions: administer into each nostril AT NIGHTTIME varenicline 0.5 mg (11)- 1 mg (42) tablets,dose pack 1 tab PO Label Comments: USE DIRECTED metoprolol tartrate 25 mg tablet 25 mg PO Label Comments: TAKE ONE TABLET BY MOUTH ONCE DAILY warfarin 5 mg tablet 5 mg PO Label Comments: take 1 TO 1 & 1/2 TABLETS BY MOUTH EVERY DAY OR DIRECTED by anticoagulation clinic cetirizine 10 mg tablet 10 mg PO Label Comments: TAKE ONE TABLET BY MOUTH EVERY DAY levocetirizine 5 mg tablet 5 mg PO estradiol 1 MG tablet 1 mg PO DAILY albuterol sulfate 18 GM HFA aerosol inhaler 2 puffs IH Q6HP PRN (Reason: Shortness Of Breath Or Wheezing) Qty: 1 0RF Referrals Follow up/Referrals: Morales Almaraz MD [Primary Care Provider] - See instructions Activity Restrictions/Add. Instructions Additional Instructions/Restrictions: Drink plenty of fluids. Take tylenol or ibuprofen for pain or fever. Take the medications as directed. Follow up with your regular doctor. GO TO THE ER FOR ANY WORSENING SYMPTOMS Quarantine until you know the results of your covid-19 test. Notify your school or workplace of your results and follow their instructions regarding return to work/school. Any antibiotic can interfere with your coumadin. Make sure you let your primary care physician know that you are on antibiotics and get your pt/inr rechecked. Clinical Impressions Clinical Impression: Otitis media, Pharyngitis Instructions Patient Instructions: Middle Ear Infection, DI for Pharyngitis/Tonsillopharyngitis -- Adult Discharge ED Provider: Ok Roberts [facility] [place] General Stated complaint: Ear pain, sore throat Time Seen by Provider: 07/10/22 11:11 History of Present Illness Provider Complaint: She states that for the past 7 days she has had worsening ear pain (left worse than right), scratchy sore throat and a cough. Related Data Home Medications Medication Instructions Recorded Confirmed levothyroxine 88 mcg tablet 88 mcg PO DAILY thyroid 07/08/18 06/13/21 (Synthroid) omeprazole 20 mg capsule,delayed 20 mg PO DAILY stomach 07/08/18 06/13/21 release atorvastatin 40 mg tablet 40 mg PO DAILY Cholesterol 09/02/18 06/13/21 estradiol 1 mg tablet 1 mg PO DAILY HORMONE RELACEMENT 03/27/19 06/13/21 metformin 500 mg tablet 500 mg PO BID Diabetes 07/12/19 06/13/21 furosemide 20 mg tablet 20 mg PO DAILY 12/06/19 06/13/21 varenicline 0.5 mg (11)-1 mg (42) 1 tab PO 02/14/20 06/13/21 tablets in a dose pack cetirizine 10 mg tablet 10 mg PO 06/13/21 06/13/21 levocetirizine 5 mg tablet 5 mg PO 06/13/21 06/13/21 metoprolol tartrate 25 mg tablet 25 mg PO 06/13/21 06/13/21 warfarin 5 mg tablet 5 mg PO 06/13/21 06/13/21 Previous Rx's Medication Instructions Recorded albuterol sulfate 90 mcg/actuation 2 puffs IH Q6HP PRN Shortness Of 03/27/19 aerosol inhaler Breath Or Wheezing #1 inh fluticasone propionate 50 1 spray intranasal DAILY #9.9 mL 12/06/19 mcg/actuation nasal spray,suspension (Flonase Allergy Relief) benzonatate 100 mg capsul
[2022-07-10 11:23] LABS: UTC Strep Screen (Rapid) Negative (Negative)
[2022-07-10 11:35] VITALS: BP 170/92; PULSE 85; RESP 18; TEMP 36.7; O2SAT 98
== END 2022-07-10 11:44 | disposition home or self-care (01) ==
PROVIDERS: Emergency Provider Nurse Practitioner Family; PCP Internal Medicine Adolescent Medicine
DX: H66.93 Otitis media, unspecified, bilateral (principal); J02.9 Acute pharyngitis, unspecified
CPT/HCPCS: 87880; 99212; G0463

== ENCOUNTER → 2022-07-22 10:32 | Outpatient (CLI) | payer MEDICARE, OTHER, SELFPAY ==
[2022-07-22 11:04] LABS: INR 1.66 (0.9-1.1); Prothrombin Time 17.4 seconds (10.1-12.5)
== END ==
PROVIDERS: PCP Internal Medicine Adolescent Medicine; Visit Provider Internal Medicine Cardiovascular Disease
DX: Z51.81 Encounter for therapeutic drug level monitoring (principal); Z79.01 Long term (current) use of anticoagulants; Z95.2 Presence of prosthetic heart valve
CPT/HCPCS: 36415; 85610

== ENCOUNTER → 2022-07-28 09:53 | Outpatient (CLI) | payer MEDICARE, OTHER, SELFPAY ==
[2022-07-28 10:27] LABS: INR 3.03 (0.9-1.1); Prothrombin Time 30.7 seconds (10.1-12.5)
== END ==
PROVIDERS: PCP Internal Medicine Adolescent Medicine; Visit Provider Internal Medicine Cardiovascular Disease
DX: Z51.81 Encounter for therapeutic drug level monitoring (principal); Z79.01 Long term (current) use of anticoagulants; Z95.2 Presence of prosthetic heart valve
CPT/HCPCS: 36415; 85610

== ENCOUNTER → 2022-08-06 10:21 | Outpatient (CLI) | payer MEDICARE, OTHER, SELFPAY ==
[2022-08-06 11:49] LABS: INR 1.95 (0.9-1.1); Prothrombin Time 20.3 seconds (10.1-12.5)
[2022-08-06 12:26] LABS: Chloride 103 mmol/L (98-107); Potassium 4.4 mmoL/L (3.5-5.1); Sodium 137 mmol/L (136-145)
[2022-08-06 12:29] LABS: Anion Gap 8.4 mEq/L (5-15); Blood Urea Nitrogen 5 mg/dl (7-17); Carbon Dioxide 30 mmol/L (22.0-30.0); Estimated Glomerular Filt Rate 58 ml/min (>60); GFR (African American) 70 ML/MIN (>60); Glucose 92 mg/dl (74-100)
== END ==
PROVIDERS: PCP Internal Medicine Adolescent Medicine; Visit Provider Internal Medicine Cardiovascular Disease
DX: Z95.2 Presence of prosthetic heart valve (principal); Z51.81 Encounter for therapeutic drug level monitoring; Z79.01 Long term (current) use of anticoagulants
CPT/HCPCS: 36415; 80048; 85610

== ENCOUNTER → 2022-08-12 09:56 | Outpatient (CLI) | payer MEDICARE, OTHER, SELFPAY ==
[2022-08-12 10:31] LABS: INR 2.31 (0.9-1.1); Prothrombin Time 23.8 seconds (10.1-12.5)
== END ==
PROVIDERS: PCP Internal Medicine Adolescent Medicine; Visit Provider Internal Medicine Cardiovascular Disease
DX: Z51.81 Encounter for therapeutic drug level monitoring (principal); Z79.01 Long term (current) use of anticoagulants; Z95.2 Presence of prosthetic heart valve
CPT/HCPCS: 36415; 85610

== ENCOUNTER → 2022-08-19 10:29 | Outpatient (CLI) | payer MEDICARE, OTHER, SELFPAY ==
[2022-08-19 11:11] LABS: INR 1.95 (0.9-1.1); Prothrombin Time 20.3 seconds (10.1-12.5)
== END ==
PROVIDERS: PCP Internal Medicine Adolescent Medicine; Visit Provider Internal Medicine Cardiovascular Disease
DX: Z51.81 Encounter for therapeutic drug level monitoring (principal); Z79.01 Long term (current) use of anticoagulants; Z95.2 Presence of prosthetic heart valve
CPT/HCPCS: 36415; 85610

== ENCOUNTER → 2022-08-27 09:05 | Outpatient (CLI) | payer MEDICARE, OTHER, SELFPAY ==
[2022-08-27 09:30] LABS: INR 2.21 (0.9-1.1); Prothrombin Time 22.8 seconds (10.1-12.5)
== END ==
PROVIDERS: PCP Internal Medicine Adolescent Medicine; Visit Provider Internal Medicine Cardiovascular Disease
DX: Z51.81 Encounter for therapeutic drug level monitoring (principal); Z79.01 Long term (current) use of anticoagulants; Z95.2 Presence of prosthetic heart valve
CPT/HCPCS: 36415; 85610

== ENCOUNTER → 2022-09-05 10:30 | Outpatient (CLI) | payer MEDICARE, OTHER, SELFPAY ==
[2022-09-05 11:46] LABS: INR 2.26 (0.9-1.1); Prothrombin Time 23.3 seconds (10.1-12.5)
== END ==
PROVIDERS: PCP Internal Medicine Adolescent Medicine; Visit Provider Internal Medicine Cardiovascular Disease
DX: Z51.81 Encounter for therapeutic drug level monitoring (principal); Z79.01 Long term (current) use of anticoagulants; Z95.2 Presence of prosthetic heart valve
CPT/HCPCS: 36415; 85610

== ENCOUNTER → 2022-09-11 08:48 | Outpatient (CLI) | payer MEDICARE, OTHER, SELFPAY ==
--- NOTE | 2022-09-11 | CA_ITS ---
FINAL REPORT TECHNIQUE: Color Doppler, duplex Doppler and [place] scale sonography of the bilateral neck arterial vasculature was performed. Velocities were measured in the carotid arteries. Stenosis evaluation based on the validated velocity criteria. CLINICAL HISTORY: Smoker, CABG, MVR, eye edema/buldging., intermittent L facial dropping and L sided numbness and weakness. FINDINGS: The peak systolic velocity of the right common carotid artery is 85 cm/s. The peak systolic velocity of the right internal carotid artery is 70 cm/s and end diastolic velocity 33 cm/s. The ICA/CCA ratio is 0.82. A minimal amount of plaque is present. The right external carotid artery is patent. The right vertebral artery is patent with antegrade flow. The peak systolic velocity of the left common carotid artery is 80 cm/s. The peak systolic velocity of the left internal carotid artery is 76 cm/s and end diastolic velocity 34 cm/s. The ICA/CCA ratio is 0.95. A minimal amount of plaque is present. The left external carotid artery is patent.The left vertebral artery is patent with antegrade flow. IMPRESSION: Less than 50% bilateral carotid stenosis. Bilateral patent vertebral arteries with antegrade flow. If indicated, CTA or MRA could further evaluate. Reviewed, Interpreted and Dictated by Long More MD Transcribed by Tiesha Frances Authenticated and [facility]
[2022-09-11 10:19] LABS: Prothrombin Time 19.8 seconds (10.1-12.5)
== END ==
PROVIDERS: Internal Medicine Cardiovascular Disease; PCP Internal Medicine Adolescent Medicine; Visit Provider Internal Medicine Adolescent Medicine
DX: I50.20 Unspecified systolic (congestive) heart failure (principal); G81.94 Hemiplegia, unspecified affecting left nondominant side; Z51.81 Encounter for therapeutic drug level monitoring; Z79.01 Long term (current) use of anticoagulants; Z95.2 Presence of prosthetic heart valve
CPT/HCPCS: 36415; 85610; 93880

== ENCOUNTER → 2022-09-16 10:38 | Outpatient (CLI) | payer MEDICARE, OTHER, SELFPAY ==
[2022-09-16 11:03] LABS: INR 3.33 (0.9-1.1); Prothrombin Time 33.6 seconds (10.1-12.5)
== END ==
PROVIDERS: PCP Internal Medicine Adolescent Medicine; Visit Provider Internal Medicine Cardiovascular Disease
DX: Z51.81 Encounter for therapeutic drug level monitoring (principal); Z79.01 Long term (current) use of anticoagulants; Z95.2 Presence of prosthetic heart valve
CPT/HCPCS: 36415; 85610

== ENCOUNTER → 2022-09-23 10:23 | Outpatient (CLI) | payer MEDICARE, OTHER, SELFPAY ==
[2022-09-23 11:19] LABS: INR 2.79 (0.9-1.1); Prothrombin Time 28.4 seconds (10.1-12.5)
== END ==
PROVIDERS: PCP Internal Medicine Adolescent Medicine; Visit Provider Internal Medicine Cardiovascular Disease
DX: Z51.81 Encounter for therapeutic drug level monitoring (principal); Z79.01 Long term (current) use of anticoagulants; Z95.2 Presence of prosthetic heart valve
CPT/HCPCS: 36415; 85610

== ENCOUNTER 2023-12-16 08:41 | Outpatient (CLI) | payer MEDICARE, SELFPAY ==
--- NOTE | 2023-12-16 08:47 | XR_ITS ---
FINAL REPORT CLINICAL HISTORY: LT MEDIAL KNEE PAIN COMPARISON: None FINDINGS: LEFT KNEE 3 views of the left knee were obtained. There is no acute fracture or dislocation. Visualized joint spaces are normally aligned. Soft tissues are unremarkable. IMPRESSION: No acute bony abnormality. Reviewed, Interpreted and Dictated by Long More MD Transcribed by Cathy Bucio Authenticated and . [facility]
== END 2023-12-16 23:59 ==
PROVIDERS: PCP Family Medicine; Visit Provider Physician Assistant
DX: M25.562 Pain in left knee (principal)
CPT/HCPCS: 73562

== ENCOUNTER 2024-08-18 09:55 | Outpatient (CLI) | payer MEDICARE, SELFPAY ==
[2024-08-18 10:21] LABS: INR 3.98 (0.9-1.1); Prothrombin Time 38.9 seconds (10.1-12.5)
== END 2024-08-18 23:59 | disposition home or self-care (01) ==
LOC: LAB 09:59
PROVIDERS: PCP Family Medicine; Visit Provider Internal Medicine Cardiovascular Disease
DX: Z95.2 Presence of prosthetic heart valve (principal)
CPT/HCPCS: 36415; 85610

== ENCOUNTER 2024-09-06 10:08 | Outpatient (CLI) | payer MEDICARE, SELFPAY ==
[2024-09-06 10:51] LABS: INR 1.85 (0.9-1.1); Prothrombin Time 19.5 seconds (10.1-12.5)
== END 2024-09-06 23:59 | disposition home or self-care (01) ==
LOC: LAB 10:08
PROVIDERS: PCP Family Medicine; Visit Provider Internal Medicine Cardiovascular Disease
DX: Z95.2 Presence of prosthetic heart valve (principal)
CPT/HCPCS: 36415; 85610

== ENCOUNTER 2024-09-12 10:16 | Outpatient (CLI) | payer MEDICARE, SELFPAY ==
[2024-09-12 11:53] LABS: INR 2.61 (0.9-1.1); Prothrombin Time 26.6 seconds (10.1-12.5)
== END 2024-09-12 23:59 | disposition home or self-care (01) ==
PROVIDERS: PCP Family Medicine; Visit Provider Internal Medicine Cardiovascular Disease
DX: Z95.2 Presence of prosthetic heart valve (principal)
CPT/HCPCS: 36415; 85610

== ENCOUNTER 2024-09-19 11:01 | Outpatient (CLI) | payer MEDICARE, SELFPAY ==
[2024-09-19 12:22] LABS: INR 3.02 (0.9-1.1); Prothrombin Time 30.3 seconds (10.1-12.5)
== END 2024-09-19 23:59 | disposition home or self-care (01) ==
LOC: LAB 11:02
PROVIDERS: PCP Family Medicine; Visit Provider Internal Medicine Cardiovascular Disease
DX: Z79.01 Long term (current) use of anticoagulants (principal); Z95.2 Presence of prosthetic heart valve
CPT/HCPCS: 36415; 85610

== ENCOUNTER 2024-09-26 11:22 | Outpatient (CLI) | payer MEDICARE, SELFPAY ==
[2024-09-26 12:30] LABS: INR 2.96 (0.9-1.1); Prothrombin Time 29.8 seconds (10.1-12.5)
== END 2024-09-26 23:59 | disposition home or self-care (01) ==
LOC: LAB 11:22
PROVIDERS: PCP Family Medicine; Visit Provider Internal Medicine Cardiovascular Disease
DX: Z95.2 Presence of prosthetic heart valve (principal)
CPT/HCPCS: 36415; 85610

== ENCOUNTER 2025-03-22 10:04 | Outpatient (CLI) | payer MEDICARE, SELFPAY | END 2025-03-22 23:59 | disposition home or self-care (01) | LOC: LAB.DROPOF 03-23 12:45 | PROVIDERS: PCP Nurse Practitioner; Visit Provider Nurse Practitioner | DX: R39.15 Urgency of urination | CPT/HCPCS: 87086; 87088; 87186 ==